=== PATIENT | male | born 1985 | race Caucasian/White ===

== ENCOUNTER 2023-05-23 18:30 | Observation (INO) | payer BC, SELFPAY ==
[2023-05-23] VITALS (32 sets, daily range): BP systolic 79–126; BP diastolic 62–86; PULSE 90–120; RESP 16–24; TEMP 36.5–36.8; O2SAT 92–100; BMI 36.6; BMI 36.7
--- NOTE | 2023-05-23 18:41 | ECG_ITS ---
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
--- NOTE | 2023-05-23 18:41 | ED.ALLEREA1 ---
HPI - Allergic Reaction General Chief complaint: Allergic Reaction Stated complaint: Anaphylaxis Time Seen by Provider: 05/23/23 18:37 Source: patient Mode of arrival: ambulance Limitations: no limitations History of Present Illness HPI narrative: The patient presenting to us after he was already evaluated in a [place] emergency room where he had a CAT scan of the abdomen with contrast, this was done after the patient was complaining of abdominal pain after having a colonoscopy done on Wednesday. The patient workup was negative and he was discharged home to be Almost within half an hour before arrival with a rash all over his body in addition to redness. The patient mentioned that when he left the emergency room in that hospital he already had a rash but not as severe as now he also had some difficulty breathing when waking up in addition to itching. The patient recalls that he have some red dye rash and he was provided with Benadryl before getting discharged. Related Data Allergies Allergy/AdvReac Type Severity Reaction Status Date / Time fentanyl Allergy Severe Verified 05/23/23 18:41 iv dye Allergy Severe Uncoded 05/23/23 18:41 toradol Allergy Severe Uncoded 05/23/23 18:41 Review of Systems ROS Status of ROS 10 or more systems reviewed and unremarkable except as noted in history and below Exam Narrative Exam Narrative: Nurses notes and vital signs reviewed and patient is not hypoxic. General: Well-appearing and in no apparent distress. Skin: Warm, dry, no pallor noted. No rash. Head: Normocephalic, atraumatic. Neck: Supple, non-tender. Eye: Pupils are equal, round and EOMI. No scleral icterus. Ears, Nose, Mouth, and Throat: TM are clear, no nasal mucosal hypertrophy. Oral mucosa is moist, no posterior oropharynx erythema, uvula is mid-line Cardiovascular: Regular Rate and Rhythm without murmur, gallop or rub. Respiratory: No accessory muscle use or respiratory distress. Lungs are clear to auscultation, no wheezing, rales or rhonchi Chest Wall: no tenderness Back: No midline thoracic or lumbar vertebral tenderness. No CVA tenderness Musculoskeletal: normal ROM, no calf or popliteal tenderness, no lower extremity edema/swelling GI: Abdomen is soft, non-distended. Normal bowel sounds. No masses appreciated. No tenderness to palpation. No rebound, guarding, or rigidity noted. Neurological: A&O x4. No cranial nerve dysfunction observed. No truncal ataxia. Moves all extremities. Sensation intact. Psychiatric: Cooperative and interactive. Normal mood and affect. Skin examination Extensive maculopapular rash all over the body from head to toe Constitutional Vital Signs, click to edit/add: Last Vital Signs Temp 98.1 F 05/23/23 18:32 Pulse 120 H 05/23/23 18:32 Resp 24 05/23/23 18:32 BP 114/69 05/23/23 18:32 Pulse Ox 100 05/23/23 18:32 O2 Del Method Nasal Cannula 05/23/23 18:32 O2 Flow Rate 4 05/23/23 18:32 Course Vital Signs Vital signs: Vital Signs Temperature 98.1 F 05/23/23 18:32 Pulse Rate 120 H 05/23/23 18:32 Respiratory Rate 24 05/23/23 18:32 Blood Pressure 114/69 05/23/23 18:32 Pulse Oximetry 100 05/23/23 18:32 Oxygen Delivery Method Nasal Cannula 05/23/23 18:32 Oxygen Delivery Flow Rate 4 05/23/23 18:32 Temperature 98.1 F 05/23/23 18:32 Pulse Rate 120 H 05/23/23 18:32 Respiratory Rate 24 05/23/23 18:32 Blood Pressure 114/69 05/23/23 18:32 Pulse Oximetry 100 05/23/23 18:32 Oxygen Delivery Method Nasal Cannula 05/23/23 18:32 Oxygen Delivery Flow Rate 4 05/23/23 18:32 MDM - Allergic Reaction MDM Narrative Medical decision making narrative: There was no wheezing there was no tongue swelling and the patient blood pressure was already better after he received epinephrine by the EMS although his blood pressure was 80 systolic upon their arrival. The patient had a also Solu-Medrol 125 mg , in addition to 25 mg of Benadryl I added 25 mg again of Benadryl in addition to Pepcid IV. EKG showing sinus rhythm rhythm with a heart rate of [address] elevation or depression The patient had a CBC and chemistry as well as ordered pending the workup the patient care was transferred to Dr. León Discharge Plan Discharge Patient Disposition: Still a Patient
--- NOTE | 2023-05-23 18:44 | PC.NURSE ---
PT HAS COLONOSCOPY WEDNESDAY. PT STAARTED HAVING SEVERE ABDOMINAL PAIN WITH DIARRHEA AND NAUSEA TODAY AND WENT TO [facility]. PT WAS GIVEN FENTANYL, TORADOL AND HAD CT WITH CONTRAAST. PT HAD SEVERE ALLERGIC REACTION BUT ITS UNKNOWN IF IT WAS FROM MEDICATION OR CONTRAST. PT WAS TREATED AND THEN DISCHARGED. PT STATES STILL HAD RED RASH BUT NOT A SEVERE WHEN HE WAS SENT HOME PT STATES TOOK AT NAP WHEN HE GOT HOME AND WOKE UP WITH SEVERE NAUSEA, SOB, AND RED RASH WITH SWELLING HEAD TO TOE. PT CALLED EMS. EMS GAVE 125MG SOLUMEDROL, 25 MG BENADRYL, 1 L NS, AND .3 MG EPI.
[2023-05-23] MEDS: 0.9 % SODIUM CHLORIDE 1,000 ML 1000 ML IV ×2 (18:57→19:30)
[2023-05-23] MEDS: FAMOTIDINE/PF 20 MG/2 ML VIAL IV ×2 (18:58→19:55)
[2023-05-23] MEDS: DIPHENHYDRAMINE HCL 50 MG/ML (1ML) VIAL 25 MG IV (18:58)
[2023-05-23 19:07] LABS: Basophils Absolute Auto 0.1 10^3/uL (0.0-0.1); Basophils Percent Auto 0.2 % (0.2-2.0); Eosinophils Absolute Auto 0.2 10^3/uL (0.0-0.7); Eosinophils Percent Auto 0.9 % (0.9-7.0); Hematocrit 48.2 % (42.0-54.0); Hemoglobin 16.2 g/dL (14.0-18.0); Immature Granulocytes Abs Auto 0.09 10^3/uL (0.00-0.03); Immature Granulocytes Pct Auto 0.4 % (0.0-0.5); Lymphocytes Absolute Auto 1.7 10^3/uL (1.2-3.8); Lymphocytes Percent Auto 7.8 % (20.5-60.0); Mean Corpuscular HGB Conc 33.6 g/dL (29.9-35.2); Mean Corpuscular Hemoglobin 30.3 pg (25.9-34.0); Mean Corpuscular Volume 90.3 fL (80.0-94.0); Mean Platelet Volume 9.4 fL (9.5-13.5); Monocytes Percent Auto 4.6 % (1.7-12.0); Neutrophils Absolute Auto 19.3 10^3/uL (1.4-6.5); Neutrophils Percent Auto 86.1 % (43.0-75.0); Platelet Count 427 10^3/uL (150-450); Red Blood Count 5.34 10^6/uL (4.70-6.10); Red Cell Distribution Width 12.4 % (11.0-15.0); White Blood Count 22.4 10^3/uL (4.0-11.0)
--- NOTE | 2023-05-23 19:20 | ED_ITS ---
HPI - Allergic Reaction General Chief complaint: Allergic Reaction Stated complaint: Anaphylaxis Time Seen by Provider: 05/23/23 18:37 Source: patient Mode of arrival: ambulance Limitations: no limitations History of Present Illness HPI narrative: This 37-year-old male was signed out to me at shift change. He presents to emergency department by EMS for an ALLERGIC reaction. The patient had a colonoscopy and endoscopy at [facility]. He states he was having ongoing abdominal cramping and pain earlier today and went to the emergency department. A contrast-enhanced CT scan was performed and he was given fentanyl and Zofran for his pain. According to the patient's he started breaking out in a rash with hives on his face and neck prior to going to CAT scan. The CAT scan was allegedly normal and he was discharged home. He took a nap and when he awakened he was covered with a red rash and EMS was called. He was given solumedrol, epinephrine and fluids as well as Benadryl by EMS. He was given additional Benadryl and Pepcid when he arrived in this emergency department. Patient was seen and evaluated. He is still rash covered but breathing normally with no stridor. He denies any abdominal cramps or pain at this time. Related Data Allergies Allergy/AdvReac Type Severity Reaction Status Date / Time fentanyl Allergy Severe Verified 05/23/23 18:41 iv dye Allergy Severe Uncoded 05/23/23 18:41 toradol Allergy Severe Uncoded 05/23/23 18:41 Review of Systems ROS Status of ROS 10 or more systems reviewed and unremark able except as noted in history and below Exam Narrative Exam Narrative: Vital signs are reviewed, patient is tachycardic with a pulse of 119, he is not hypoxic with pulse ox of 100 percent on room, blood pressure is 119/81 at the time of this dictation General: , Nontoxic male, he is covered with an erythematous rash, speech is clear, there is no trismus or drooling noted Skin: Diffuse erythematous rash Head: Normocephalic, atraumatic Eye: Normal conjunctiva, no drainage, EOMI. PERRL, conjunctiva appear normal Ears, Nose, Mouth, and Throat: oral mucosa is moist.There is no swelling of the tongue, uvula or pharyngeal soft tissues, there is no pooling of secretions. Speech is clear Neck: Supple, no stridor appreciated Cardiovascular: Regular Rate and Rhythm, Tachycardic at 119 Respiratory: Patient is in no distress, no accessory muscle use, lungs are clear to auscultation, no wheezing, rales or rhonchi Back: non-tender, no CVA tenderness bilaterally to percussion. GI: Normal bowel sounds, no tenderness to palpation, no masses appreciated. No rebound, guarding, or rigidity noted. Musculoskeletal: Diffuse erythematous rash on upper and lower extremities bilaterally Neurological: A&O x4, normal speech Psychiatric: Cooperative Constitutional Vital Signs, click to edit/add: Last Vital Signs Temp 98.1 F 05/23/23 18:32 Pulse 111 H 05/23/23 18:50 Resp 24 05/23/23 18:32 BP 114/78 05/23/23 18:46 Pulse Ox 99 05/23/23 18:50 O2 Del Method Nasal Cannula 05/23/23 18:32 O2 Flow Rate 4 05/23/23 18:32 Course Course Hospital Course: This patient was continuously monitored on the environmental monitoring technician and evaluated. Approximately 1-1/2 hours after arrival he started to have recurrence of some upper or lower lip swelling. He was evaluated by myself. There is no respiratory distress or stridor noted. He was remedicated with 60 mg of IV Solu-Medrol and 0.3 mg of subcutaneous epinephrine. On reevaluation his symptoms appear to be improving. Labs are reviewed. His white count is elevated at 22.4 which is likely an acute phase reactant. I did review his labs from earlier today at [facility] and his white count was 15 at that time. Vital Signs Vital signs: Vital Signs Temperature 98.1 F 05/23/23 18:32 Pulse Rate 120 H 05/23/23 18:32 Respiratory Rate 24 05/23/23 18:32 Blood Pressure 114/69 05/23/23 18:32 Pulse Oximetry 100 05/23/23 18:32 Oxygen Delivery Method Nasal Cannula 05/23/23 18:32 Oxygen Delivery Flow Rate 4 05/23/23 18:32 Temperature 98.1 F 05/23/23 18:32 Pulse Rate 111 H 05/23/23 18:50 Respiratory Rate 24 05/23/23 18:32 Blood Pressure 114/78 05/23/23 18:46 Pulse Oximetry 99 05/23/23 18:50 Oxygen Delivery Method Nasal Cannula 05/23/23 18:32 Oxygen Delivery Flow Rate 4 05/23/23 18:32 MDM - Allergic Reaction MDM Narrative Medical decision making narrative: 37-year-old male sent out to me at shift change presented to the emergency department by EMS for an ALLERGIC reaction. The patient had fentanyl and Zofran earlier today while at [place] emergency department while being worked up for abdominal pain. He started having hives while in the emergency department and his female guest services coordinator thinks that he started having the hives prior to CT scan. He does not have a known contrast reaction. When EMS was called he was given subcutaneous epinephrine and Solu-Medrol as well as Benadryl. He was given additional Benadryl and Pepcid in this emergency department. He complained of some dyspepsia and was given a gastrointestinal cocktail and additional Pepcid. He has received IV fluids. EKG was reviewed by myself and does not show any acute findings. He has no elevated white count at 22 which is likely an acute phase reactant to the ALLERGIC reaction. Electrolytes are normal although he does have a mildly elevated creatinine of 1.62. While in the emergency department he had some recurrence of lip swelling and was remedicated with an additional 60 mg of IV Solu-Medrol and subcutaneous epinephrine. The patient will require monitoring overnight in the ICU. The case was discussed with the hospitalist and he is accepted for admission to the ICU. Differential Diagnosis Differential diagnosis: Likely anaphylaxis, allergic reaction and adverse reaction to drug Medical Records Attestation: I reviewed the patient's medical records. Medical records narrative: Patient's Emergency Department chart from [facility] was reviewed by myself. He had normal labs at that time and CT scan of abdomen and pelvis did not show any acute findings. Lab Data Attestation: I reviewed the patient's lab results. Labs: Lab Results 05/23/23 Range/Units 18:58 WBC 22.4 H (4.0-11.0) 10^3/uL RBC 5.34 (4.70-6.10) 10^6/uL Hgb 16.2 (14.0-18.0) g/dL Hct 48.2 (42.0-54.0) % MCV 90.3 (80.0-94.0) fL MCH 30.3 (25.9-34.0) pg MCHC 33.6 (29.9-35.2) g/dL RDW 12.4 (11.0-15.0) % Plt Count 427 (150-450) 10^3/uL MPV 9.4 L (9.5-13.5) fL Neut % (Auto) 86.1 H (43.0-75.0) % Lymph % (Auto) 7.8 L (20.5-60.0) % [place] % (Auto) 4.6 (1.7-12.0) % Eos % (Auto) 0.9 (0.9-7.0) % Baso % (Auto) 0.2 (0.2-2.0) % Neut # (Auto) 19.3 H (1.4-6.5) 10^3/uL Lymph # (Auto) 1.7 (1.2-3.8) 10^3/uL [place] # (Auto) 1.0 H (0.3-0.8) 10^3/uL Eos # (Auto) 0.2 (0.0-0.7) 10^3/uL Baso # (Auto) 0.1 (0.0-0.1) 10^3/uL Abs Immat Gran (auto) 0.09 H (0.00-0.03) 10^3/uL Imm/Tot Granulo (auto) 0.4 (0.0-0.5) % ECG Data Attestation: I personally reviewed and interpreted this ECG as follows: (Sinus tachycardia at 111 beats for minute, normal axis, normal intervals, no acute ST segment elevation or T-wave inversion) Critical Care Time Critical Care Time Critical Care Time: Yes Total Critical Care Time: 45 Attestation: . Discharge Plan Discharge Chief Complaint: Allergic Reaction Clinical Impression: Anaphylaxis Patient Disposition: Admitted as Observation Time of Disposition Decision: 20:40
[2023-05-23 19:25] LABS: Alanine Aminotransferase 44 U/L (16-63); Albumin Level 3.1 g/dL (3.4-5.0); Alkaline Phosphatase 94 U/L (46-116); Anion Gap 17.4; Aspartate Amino Transferase 20 U/L (15-37); BUN Creatinine Ratio 8.6; Bilirubin Total 0.8 mg/dL (0.2-1.0); Calcium 7.9 mg/dL (8.5-10.1); Carbon Dioxide 22.1 mmol/L (21.0-32.0); Chloride 104 mmol/L (98-107); Estimated GFR (African America 59 (>=60); Estimated GFR (Non-African Ame 49 (>=60); Globulin 3.2 g/dL; Glucose 210 mg/dL (74-106); Potassium 4.5 mmol/L (3.5-5.1); Sodium 139 mmol/L (136-145); Total Protein 6.3 g/dL (6.4-8.2)
[2023-05-23] MEDS: lidocaine HCL 15 ML, MAG HYDROX/ALUMINUM HYD/SIMETH 30 ML, HYOSCYAMINE SULFATE 0.25 MG PO (19:55)
--- NOTE | 2023-05-23 20:09 | PC.NURSE ---
Pt called this nurse into the room for feeling that his face is swelling again Pt states he feels that his face is swollen-when pt sticks out his tongue this nurse does not notice any swelling, however his bottom lip does appear to be puffy His states that she thinks his face is more swollen too This was relayed to Dr. León The thick redness that was present throughout his body has lessened but he is now covered in rash from head to toe Blanching present to trunk
[2023-05-23] MEDS: METHYLPREDNISOLONE SOD SUCC PF 125 MG/2 ML VIAL 60 MG IVP (20:20)
[2023-05-23] MEDS: EPINEPHRINE HCL PF 1 MG/ML AMPULE 0.299999999999999989 MG SUBQ (20:20)
[2023-05-23] MEDS: EPINEPHRINE HCL PF 1 MG/ML AMPULE 0.299999999999999989 MG IM (21:54)
[2023-05-24] VITALS (41 sets, daily range): BP systolic 105–130; BP diastolic 65–73; PULSE 84–127; RESP 11–36; TEMP 36.8–37.1; O2SAT 93–96
[2023-05-24] MEDS: DIPHENHYDRAMINE HCL 50 MG/ML (1ML) VIAL 25 MG IV (01:01)
[2023-05-24 05:19] LABS: Basophils Percent Auto 0.3 % (0.2-2.0); Eosinophils Percent Auto 0.3 % (0.9-7.0); Hematocrit 45.1 % (42.0-54.0); Immature Granulocytes Abs Auto 0.06 10^3/uL (0.00-0.03); Immature Granulocytes Pct Auto 0.4 % (0.0-0.5); Lymphocytes Absolute Auto 0.7 10^3/uL (1.2-3.8); Mean Corpuscular HGB Conc 33.3 g/dL (29.9-35.2); Mean Corpuscular Hemoglobin 29.7 pg (25.9-34.0); Mean Corpuscular Volume 89.3 fL (80.0-94.0); Mean Platelet Volume 9.4 fL (9.5-13.5); Monocytes Absolute Auto 0.3 10^3/uL (0.3-0.8); Monocytes Percent Auto 2.1 % (1.7-12.0); Neutrophils Absolute Auto 13.5 10^3/uL (1.4-6.5); Neutrophils Percent Auto 91.9 % (43.0-75.0); Platelet Count 335 10^3/uL (150-450); Red Blood Count 5.05 10^6/uL (4.70-6.10); Red Cell Distribution Width 12.6 % (11.0-15.0); White Blood Count 14.7 10^3/uL (4.0-11.0)
[2023-05-24 05:52] LABS: Alanine Aminotransferase 42 U/L (16-63); Albumin Globulin Ratio 0.9; Alkaline Phosphatase 74 U/L (46-116); Anion Gap 15.5; Aspartate Amino Transferase 20 U/L (15-37); BUN Creatinine Ratio 12.7; Bilirubin Total 0.5 mg/dL (0.2-1.0); Calcium 8.2 mg/dL (8.5-10.1); Carbon Dioxide 22.9 mmol/L (21.0-32.0); Chloride 106 mmol/L (98-107); Estimated GFR (African America >60 (>=60); Estimated GFR (Non-African Ame >60 (>=60); Globulin 3.3 g/dL; Glucose 156 mg/dL (74-106); Potassium 5.4 mmol/L (3.5-5.1); Sodium 139 mmol/L (136-145); Total Protein 6.3 g/dL (6.4-8.2)
--- NOTE | 2023-05-24 08:21 | PM.HP ---
H&P: HPI History of Present Illness Chief complaint: Anaphylaxis, Allergic Reaction Narrative: patient is a 37-year-old male who recently has been undergoing workup for possible lupus versus Crohn's disease. He had an EGD and colonoscopy approximately 4-5 days ago and started having significant abdominal pain forty-eight hours after he presented to the Emergency Room in [place]. In [place] they gave him some pain medication, he also received a CT with contrast and some Zofran. he reports that he started having hives on his skin, itching, redness to his face and lip swelling shortly after he was in the Emergency Room. Because he was having some shortness of breath after the lip swelling EMS was called and he was given epinephrine, Benadryl. The emergency room he was also given Benadryl with some Solu-Medrol and epinephrine. He was admitted to the hospitalist service for observation of his anaphylactic reaction. Overnight he reports he feels much better since admission. Still with symptoms slight swelling of the upper lip, no tongue swelling or problems breathing. He also notes that his itching has resolved and flushing has also resolved. ALLERGIES IV contrast dye, fentanyl were added to his ALLERGY list. He denies any other issues or complaints at this time. Review of Systems ROS Narrative ROS: a complete review of systems were reviewed with patient and are positive as below or listed in History of Chief Complaint. General: no fever, chills, night sweats Head: no headache, trauma, visual changes, nausea or vomiting Skin: rashes, itching Eyes: no blurriness of vision Ears: no reported hearing loss, vertigo, earache, or tinnitus Throat: no sore throat, hoarseness, swelling of neck, or tongue, but lip swelling Heart: no chest pain Lungs: shortness of breath no cough GI: no diarrhea or vomiting/nausea Urinary: no urinary urgency, frequency or pain Neuro: no numbness or tingling HEM: no bleeding issues or bruising ENDO: no thyroid problems Psych: no anxiety or depression [facility] Medical History (Updated 05/24/23 @ 14:15 by Merry Gaviria DO) Infection of left knee ?M00.9 - Pyogenic arthritis, unspecified (ICD-10) Blurred vision ?H53.8 - Other visual disturbances (ICD-10) Shaky ?R25.1 - Tremor, unspecified (ICD-10) Weakness ?R53.1 - Weakness (ICD-10) Fatigue ?R53.83 - Other fatigue (ICD-10) Surgical History H/O left knee surgery ?Z98.890 - Other specified postprocedural states (ICD-10) Family History Father Acute Crohn's disease Pancreatitis Mother Common bile duct (CBD) obstruction Social History (Updated 05/23/23 @ 22:49 by Trenton Ozuna) Within the past year, how often did you have a drink containing alcohol: monthly or less Within the past year, how often did you have six or more drinks on one occasion: never Do you use any of these nicotine containing products: vaping products and smokeless tobacco Nicotine containing products detail: States he Vapes daily and only occasionally uses dipping tobacco Second hand tobacco smoke exposure: No Non-prescribed substance use: cannabis (any form) Non-prescribed substance use details: states he smokes 2 Marijuana joints daily on average Known occupational exposures/hazards: No Highest level of school completed/degree received: high school graduate Are you now , , , , never or living with a partner: In a typical week, how many times do you talk on the telephone with family, friends, or neighbors: 3 or more times per week How often do you get together with friends or relatives: 3 or more times per week Little interest or pleasure in doing things: not at all Feeling down, depressed, or hopeless: not at all Feel stressed/tense/nervous/anxious/difficulty sleeping: not at all Do you think of yourself as: straight/heterosexual Gender Identity: male Meds Home Medications and Allergies Home Medications Medication Instructions Recorded Confirmed Type cetirizine 10 mg tablet 10 mg PO QD 7 days #7 tabs 05/24/23 Rx famotidine 20 mg tablet 40 mg (2 x 20 mg) PO QD 7 days #14 05/24/23 Rx tabs Allergies Allergy/AdvReac Type Severity Reaction Status Date / Time fentanyl Allergy Severe Verified 05/23/23 18:41 iv dye Allergy Severe Uncoded 05/23/23 18:41 toradol Allergy Severe Uncoded 05/23/23 18:41 Exam Narrative Exam Narrative: General: Patient is alert, and oriented to person, place and time with normal affect, proper hygiene Skin: erythema/flushing over the face and upper chest Head: atraumatic, acephalic Eyes: PERRLA, no nystagmus present, conjunctiva clear, no scleral icterus Ears: normal Tympanic Membrane, normal gross auditory acuity Nose: symmetric, no discharge, no maxillary or frontal sinus tenderness Mouth/Throat: no erythema, exudate, or tonsillar enlargement, normal dentition, slight swelling to the upper lip Neck: no masses palpated, normal thyroid, no JVD or audible carotid bruits Heart: Normal rate and rhythm, no murmurs/rubs/gallops Lungs: no audible wheezes, crackles and normal breath sounds all lung banks Abdomen: Normal audible bowel sounds, no distension, No palpable masses, no organomegaly, no rebound/guarding/ or rigidity Neuro: CN II-X grossly intact, Constitutional Vital Signs, click to edit/add: Last Vital Signs Temp 98.7 F 05/24/23 08:00 Pulse 100 H 05/24/23 08:00 Resp 16 05/24/23 08:00 BP 105/67 05/24/23 04:00 Pulse Ox 95 05/24/23 04:00 O2 Del Method Room Air 05/24/23 04:00 O2 Flow Rate 4 05/23/23 18:32 Results Labs Labs: Short CBC 05/23/23 05/24/23 Range/Units 18:58 05:04 WBC 22.4 H 14.7 H (4.0-11.0) 10^3/uL Hgb 16.2 15.0 (14.0-18.0) g/dL Hct 48.2 45.1 (42.0-54.0) % Plt Count 427 335 (150-450) 10^3/uL BMP 05/23/23 05/24/23 18:58 05:04 Sodium 139 139 Potassium 4.5 5.4 H Chloride 104 106 Carbon Dioxide 22.1 22.9 BUN 14.0 15.0 Creatinine 1.62 H 1.18 Glucose 210 H 156 H Calcium 7.9 L 8.2 L Liver Function 05/23/23 05/24/23 Range/Units 18:58 05:04 Total Bilirubin 0.8 0.5 (0.2-1.0) mg/dL AST 20 20 (15-37) U/L ALT 44 42 (16-63) U/L Alkaline Phosphatase 94 74 (46-116) U/L Albumin 3.1 L 3.0 L (3.4-5.0) g/dL Assessment and Plan Assessment and Plan (1) Anaphylaxis: Assessment and Plan: patient was given Benadryl, epinephrine, Solu-Medrol. Will continue with another dose of Solu-Medrol 125 mg IV ?1 and will be discharged home today on Zyrtec 10 mg once a day and Pepcid 40 mg once a day for 7 days. Qualifiers: Encounter type: initial encounter Qualified Code(s): T78.2XXA - Anaphylactic shock, unspecified, initial encounter Plan full code
[2023-05-24] MEDS: FAMOTIDINE 20 MG TABLET 40 MG PO (08:38)
[2023-05-24] MEDS: CETIRIZINE HCL 10 MG TABLET PO (08:38)
[2023-05-24] MEDS: METHYLPREDNISOLONE SOD SUCC PF 125 MG/2 ML VIAL IVP (09:53)
--- NOTE | 2023-05-24 11:38 | CM.NOTE ---
Rounds made with atul Mike for pt to discharge to home this afternoon. No discharge needs identified.
--- NOTE | 2023-05-24 14:18 | PM.DS1 ---
DS: Providers Provider Date of admission: 05/23/23 22:00 Primary care physician: LEELA LAMBERT APRN-DENISE Admitting clinician: Merry Gaviria Discharging clinician: Merry Gaviria DS: Diagnosis Discharge Diagnosis (1) Anaphylaxis: Qualifiers: Encounter type: initial encounter Qualified Code(s): T78.2XXA - Anaphylactic shock, unspecified, initial encounter DS: Summary Hospital Course Hospital Course: patient is a 37-year-old male who recently has been undergoing workup for possible lupus versus Crohn's disease. He had an EGD and colonoscopy approximately 4-5 days ago and started having significant abdominal pain forty-eight hours after he presented to the Emergency Room in [place]. In [place] they gave him some pain medication, he also received a CT with contrast and some Zofran. he reports that he started having hives on his skin, itching, redness to his face and lip swelling shortly after he was in the Emergency Room. Because he was having some shortness of breath after the lip swelling EMS was called and he was given epinephrine, Benadryl. The emergency room he was also given Benadryl with some Solu-Medrol and epinephrine. He was admitted to the hospitalist service for observation of his anaphylactic reaction. Overnight he reports he feels much better since admission. Still with symptoms slight swelling of the upper lip, no tongue swelling or problems breathing. He also notes that his itching has resolved and flushing has also resolved. ALLERGIES IV contrast dye, fentanyl were added to his ALLERGY list. He denies any other issues or complaints at this time. Given dose of Solu-Medrol 125 mg IV ?1 this morning and will be discharged home today on Zyrtec 10 mg once a day and Pepcid 40 mg once a day for 7 days. he is to return to the hospital with any worsening symptoms. Time Spent with Patient Time attestation: Total time spent providing and/or coordinating discharge services: Time spent: less than 30 minutes Exam Narrative Exam Narrative: no changes to physical exam from H and P dated 05/24/23 Constitutional Vital Signs, click to edit/add: Last Vital Signs Temp 98.3 F 05/24/23 12:00 Pulse 109 H 05/24/23 12:30 Resp 18 05/24/23 12:30 BP 130/73 05/24/23 12:29 Pulse Ox 96 05/24/23 12:29 O2 Del Method Room Air 05/24/23 04:00 O2 Flow Rate 4 05/23/23 18:32 DS: Data Data Completed and Pending Labs on day of discharge: Labs from last 24 hours 05/24/23 05/23/23 05:04 18:58 WBC 14.7 H 22.4 H RBC 5.05 5.34 Hgb 15.0 16.2 Hct 45.1 48.2 MCV 89.3 90.3 MCH 29.7 30.3 MCHC 33.3 33.6 RDW 12.6 12.4 Plt Count 335 427 MPV 9.4 L 9.4 L Neut % (Auto) 91.9 H 86.1 H Lymph % (Auto) 5.0 L 7.8 L [place] % (Auto) 2.1 4.6 Eos % (Auto) 0.3 L 0.9 Baso % (Auto) 0.3 0.2 Neut # (Auto) 13.5 H 19.3 H Lymph # (Auto) 0.7 L 1.7 [place] # (Auto) 0.3 1.0 H Eos # (Auto) 0.0 0.2 Baso # (Auto) 0.0 0.1 Abs Immat Gran (auto) 0.06 H 0.09 H Imm/Tot Granulo (auto) 0.4 0.4 Sodium 139 139 Potassium 5.4 H 4.5 Chloride 106 104 Carbon Dioxide 22.9 22.1 Anion Gap 15.5 17.4 BUN 15.0 14.0 Creatinine 1.18 1.62 H Est GFR ( Amer) >60 59 L Est GFR (Non-Af Amer) >60 49 L BUN/Creatinine Ratio 12.7 8.6 Glucose 156 H 210 H Calcium 8.2 L 7.9 L Total Bilirubin 0.5 0.8 AST 20 20 ALT 42 44 Alkaline Phosphatase 74 94 Troponin I High Sens 17.0 Total Protein 6.3 L 6.3 L Albumin 3.0 L 3.1 L Globulin 3.3 3.2 Albumin/Globulin Ratio 0.9 1.0 Discharge Plan Discharge Disposition: Home, Self-Care Discharge Medications: New cetirizine 10 mg Tablet 10 mg PO QD 7 Days Qty: 7 0RF famotidine 20 mg Tablet 40 mg PO QD 7 Days Qty: 14 0RF Activity: resume usual activities as tolerated Diet: advance to your usual diet Patient Instructions: General Allergic Reaction (ED) Forms: Portal Instructions Follow Up Appointments: Follow up with Dr. Lambert in [place] within a week. [phone]
--- NOTE | 2023-05-25 15:11 | CM.DCFOLLOWU ---
Person spoke with: De How are you feeling? Better but still tired How is your pain? No pain Did you understand your discharge instructions? Yes Do you have any questions about your discharge instructions? No Were you given any prescriptions at discharge? Yes Were you able to get your prescriptions filled? Yes Do you understand how to take your medications as ordered? Yes Do you have any questions about your follow up appointment and do you plan to keep your follow up appointment? I have appointment of Wednesday with my primary care doctor Is there anything else that you would like to discuss? No Questions/Comments/Concerns/Other:
== END 2023-05-24 14:20 | disposition home or self-care (01) ==
LOC: ER 20:51 → ICU 22:03
PROVIDERS: Emergency Medicine; Registered Nurse; Admitting Provider Family Medicine; Emergency Provider Emergency Medicine; PCP Nurse Practitioner Primary Care; Visit Provider Family Medicine
DX: T88.6XXA Anaphylactic reaction due to adverse effect of correct drug or medicament properly administered, initial encounter (principal); T50.8X5A Adverse effect of diagnostic agents, initial encounter; T40.415A Adverse effect of fentanyl or fentanyl analogs, initial encounter
CPT/HCPCS: 36415; 80053; 84484; 85025; 93005; 96372; 96374; 96375; 96376; 99285; G0378; J2930

== ENCOUNTER 2023-12-23 18:37 | Outpatient (OUT) | payer BC, SELFPAY ==
--- NOTE | 2023-12-23 18:40 | US_ITS ---
The [address] [address] Patient Name: CARLTON PUENTES MRN: [id number] date: 1985 Sex: M Assigned Patient Location: [place] Current Patient Location: [place] Accession/Order Number: [id number] Exam Date: 12/23/2023 19:00 Report Date: 12/25/2023 05:08 At the request of: ALMA ROSA OLMSTEAD Procedure: US thyroid EXAMINATION: US thyroid HISTORY: VOICE HOARSENESS R49.0 COMPARISON: No relevant comparison available. FINDINGS: RIGHT LOBE: Enlarged, but fairly homogeneous echotexture and no increased vascularity. Contains an 8 mm TR 3 nodule within mid body. Lobe size: 6.0 x 1.7 x 1.8 cm LEFT LOBE: Normal size and echotexture. Lobe size: 4.8 x 1.2 x 1.6 cm ISTHMUS: Minimally thickened. Thickness: 4 mm OTHER: Within the left neck corresponding to area of swelling are several slightly edematous appearing lymph nodes, largest is 2.8 x 1.0 x 1.6 cm US/US thyroid IMPRESSION: 1. Slightly prominent right thyroid lobe, but not overtly suspicious. Right lobe contains an 8 mm TR 3 nodule. No additional follow-up recommended at this time. 2. Mild lymphadenopathy within left neck corresponding to patient's area of swelling. Consider follow-up ultrasound evaluation in one month to document stability versus progression. TR3 (mildly suspicious): > 1.5 cm, follow-up ultrasound in 1, 3, and 5 years. > 2.5 cm, fine needle aspiration. Electronically authenticated by: LOWELL BLACKBURN Date: 12/25/2023 05:08
--- OUTSIDE RECORDS SUMMARY | 2023-12-23 18:40 | XMS_ITS | CCD ---
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, Jorge A Primary Care Provider AMBREEN AVELAR Referring Unavailable SHAMMO, JORGE A Primary Care Unavailable SHAMMO, JORGE A Primary Care Unavailable MILADY ZIMMER Attending Unavailable JANNET ARECHIGA Attending Unavailable JANNET ARECHIGA Referring Unavailable SHAMMO, JORGE A Primary Care Unavailable RONA EVANS Attending Unavailable ALEX PYLE Referring Unavailable SHAMMO, JORGE A Primary Care Unavailable RONA EVANS Attending Unavailable ALEX PYLE Referring Unavailable ALEX PYLE Primary Care Unavailable SHAMMO, JORGE A Primary Care Unavailable LAINA CARMONA Attending Unavailable SHAMMO, JORGE A Referring Unavailable SHAMMO, JORGE A Primary Care Unavailable SHAMMO, JORGE A Referring Unavailable SHAMMO, JORGE A Primary Care Unavailable SHAMMO, JORGE A Referring Unavailable SHAMMO, JORGE A Primary Care Unavailable ALSHOHA, MOHAMMAD Admitting Unavailable ALSHOHA, MOHAMMAD Attending Unavailable ALSHOHA, MOHAMMAD Referring Unavailable SHAMMO, JORGE A Primary Care Unavailable ALSHOHA, MOHAMMAD Attending Unavailable ALSHOHA, MOHAMMAD Referring Unavailable SHAMMO, JORGE A Primary Care Unavailable JS STRAUSS JR Attending Unavailabl e SHAMMO, JORGE A Primary Care Unavailable ALSHOHA, MOHAMMAD Attending Unavailable ALSHOHA, CHAVEZAMMAD Referring Unavailable SHAMMO, JORGE A Primary Care Unavailable SHAMMO, JORGE A Primary Care Unavailable AMBREEN AVELAR Attending Unavailable SHAMMO, JORGE A Referring Unavailable SHAMMO, JORGE A Primary Care Unavailable AMBREEN AVELAR Attending Unavailable ALEX PYLE Referring Unavailable SHAMMO, JORGE A Primary Care Unavailable SHAMIKA RICKETTS Attending Unavailable RAJIV ESPARZA Referring Unavailable Allergies Allergy Classification Reported Allergen(s) Allergy Type Date of Onset Reaction(s) Facility (1 source) Contrast media; Translations: [DYE] Propensity to adverse reactions to drug (disorder) [facility] Rep[facility] Medications Current Medications Medication Drug Class(es) Dates Sig (Normalized) Sig (Original) [id number] actuat albuterol 0.09 mg/actuat metered dose inhaler (8 sources) beta2-Adrenergic Agonist Start: 05-17-2019 take 2 puff(s) by inhalation every four hours as needed for wheezing albuterol (PROVENTIL HFA;VENTOLIN HFA) 90 mcg/actuation inhaler Indications: Bacterial URI Inhale 2 puffs every 4 (four) hours as needed for wheezing or shortness of breath. 1 Inhaler 0 05/17/2019 Active dicyclomine hydrochloride 20 mg oral tablet (2 sources) Anticholinergic Start: 05-23-2023 take 1 tablet by mouth twice daily as needed dicyclomine (BENTYL) 20 mg tablet Take 1 tablet (20 mg total) by mouth 2 (two) times a day as needed (abdominal cramping). 20 tablet 0 05/23/2023 Active doxycycline hyclate 100 mg oral tablet (8 sources) Tetracycline-class Drug Start: 09-01-2018 take 1 tablet by mouth twice daily doxycycline (VIBRA-TABS) 100 mg tablet Indications: Abscess of buttock, right Take 1 tablet (100 mg total) by mouth 2 (two) times a day. 20 tablet 0 09/01/2018 Active ergocalciferol 1.25 mg oral capsule (7 sources) Provitamin D2 Compound Start: 05-04-2023 ergocalciferol (VITAMIN D2) 1,250 mcg (50,000 unit) capsule Indications: Vitamin D deficiency Capsule weekly for 8 weeks then once monthly 12 capsule 0 05/04/2023 Active fexofenadine hydrochloride 180 mg oral tablet (3 sources) Histamine-1 Receptor Antagonist Start: 11-13-2022 take 1 tablet by mouth once daily fexofenadine (SEFERINO) 180 mg tablet 1 tablet Swallow whole with water; do not take with fruit juices. Orally Once a day for 90 days 0 11/13/2022 Active hydrocortisone 25 mg/ml topical cream (2 sources) Corticosteroid Start: 05-21-2023 hydrocortisone (ANUSOL-HC) 2.5 % rectal cream Insert 1 Application into the rectum in the morning and 1 Application before bedtime. Use twice daily for hemorrhoids for 2 weeks then as needed. 30 g 1 05/21/2023 Active ketoconazole 20 mg/ml medicated shampoo (11 sources) Azole Antifungal Start: 04-29-2023 ketoconazole (NIZORAL) 2 % shampoo Indications: Seborrheic dermatitis Apply 1 Application topically 2 (two) times a week. Apply to damp skin, lather, leave on 5 minutes, and rinse 120 mL 1 04/29/2023 Active ketoconazole (NI ZORAL) 2 % cream Apply 1 Application topically in the morning. 0 Active meloxicam 15 mg oral tablet (8 sources) Nonsteroidal Anti-inflammatory Drug Start: 04-27-2023 take 1 tablet by mouth at mealtime meloxicam (MOBIC) 15 mg tablet Indications: Chronic fatigue syndrome , Chronic low back pain without sciatica, unspecified back pain laterality Take one tablet by mouth in the morning with food 30 tablet 2 04/27/2023 Active mupirocin 0.02 mg/mg topical ointment (8 sources) RNA Synthetase Inhibitor Antibacterial Start: 09-01-2018 mupirocin (BACTROBAN) 2 % ointment Indications: Abscess of buttock, right Apply 1 application topically 2 (two) times a day. 22 g 0 09/01/2018 Active ondansetron 4 mg disintegrating oral tablet (2 sources) Serotonin-3 Receptor Antagonist Start: 05-23-2023 take 1 tablet by mouth every eight hours as needed for nausea ondansetron ODT (ZOFRAN ODT) 4 mg disintegrating tablet Dissolve 1 tablet (4 mg total) on tongue every 8 (eight) hours as needed for nausea for up to 10 doses. 10 tablet 0 05/23/2023 Active pantoprazole 40 mg delayed release oral tablet (2 sources) Proton Pump Inhibitor Start: 05-21-2023 End: 07-20-2023 take 1 tablet by mouth once daily before breakfast pantoprazole (PROTONIX) 40 mg EC tablet Take 1 tablet (40 mg total) by mouth every morning before breakfast for 60 days. Take 20-30 minutes before breakfast 60 tablet 0 05/21/2023 07/20/2023 Active tiZANidine 2 mg oral tablet (8 sources) Central alpha-2 Adrenergic Agonist Start: 04-27-2023 tiZANidine (ZANAFLEX) 2 mg tablet Indications: Chronic fatigue syndrome , Chronic low back pain without sciatica, unspecified back pain laterality One tab at 8:00 p.m.each night 30 tablet 2 04/27/2023 Active Problems Active Problems Problem Classification Problem Date Documented Da te Episodic/Chronic Abdominal pain (3 sources) Unspecified abdominal pain; Translations: [Abdominal pain] Onset: 05-23-2023 Episodic Gastrointestinal hemorrhage (2 sources) Black feces; Translations: [Melena] Onset: 05-18-2023 05-18-2023 Episodic Immunizations and screening for infectious disease (2 sources) Exposure to sexually transmissible disorder; Translations: [Anti-nuclear factor positive] 05-28-2023 Episodic Malaise and fatigue (2 sources) Chronic fatigue syndrome; Translations: [Chronic fatigue syndrome] Onset: 05-14-2023 04-27-2023 Chronic Malaise and fatigue (1 source) Weakness; Translations: [Weakness] Onset: 05-14-2023 Episodic Mycoses (2 sources) Tinea pedis; Translations: [Tinea pedis] Onset: 04-27-2023 04-27-2023 Episodic Nausea and vomiting (1 source) Nausea Onset: 05-23-2023 Episodic Nutritional deficiencies (1 source) Vitamin D deficiency; Translations: [Vitamin D deficiency, unspecified] 05-04-2023 Chronic Other gastrointestinal disorders (1 source) Irritable bowel syndrome with diarrhea; Translations: [Irritable bowel syndrome with diarrhea] Onset: 07-03-2023 Chronic Other gastrointestinal disorders (2 sources) Altered bowel function; Translations: [Other specified symptoms and signs involving the digestive system and abdomen] 05-12-2023 Episodic Other gastrointestinal disorders (3 sources) Other specified symptoms and signs involving the digestive system and abdomen; Translations: [Other specified symptoms and signs involving the digestive system and abdomen] Onset: 05-18-2023 Episodic Other gastrointestinal disorders (1 source) Diarrhea Onset: 05-23-2023 Episodic Other inflammatory condition of skin (1 source) Seborrheic dermatitis; Translations: [Seborrheic dermatitis, unspecified] 04-27-2023 Episodic Other inflammatory condition of skin (1 source) Seborrheic dermatitis, unspecified; Translations: [Seborrheic dermatitis, unspecified] Onset: 04-27-2023 Episodic Other liver diseases (1 source) ALT (SGPT) level raised; Translations: [Elevated ALT measurement] 05-18-2023 Episodic Other male genital disorders (1 source) Male infertility, unspecified; Translations: [Male infertility, unspecified] Onset: 11-27-2022 Episodic Other nervous system disorders (1 source) Other chronic pain; Translations: [Other chronic pain] Onset: 04-27-2023 Chronic Other nervous system disorders (1 source) Disturbance in speech; Translations: [Unspecified speech disturbances] 04-27-2023 Episodic Other nervous system disorders (1 source) Impaired cognition; Translations: [Other symptoms and signs involving cognitive functions and awareness] 04-27-2023 Episodic Other nervous system disorders (1 source) Unspecified speech disturbances; Translations: [Unspecified speech disturbances] Onset: 04-27-2023 Episodic Other nervous system disorders (1 source) Other symptoms and signs involving cognitive functions and awareness; Translations: [Other symptoms and signs involving cognitive functions and awareness] Onset: 04-27-2023 Episodic Other screening for suspected conditions (not mental disorders or infectious disease) (3 sources) Protein level - finding; Translations: [Other specified abnormal findings of blood chemistry] Onset: 05-18-2023 05-12-2023 Episodic Spondylosis; intervertebral disc disorders; other back problems (1 source) Chronic low back pain; Translations: [Chronic low back pain without sciatica, unspecified back pain laterality] 04-27-2023 Episodic Unclassified (1 source) Post-op Issue Onset: 05-23-2023 Unclassified (2 sources) Elevation of levels of liver transaminase levels; Translations: [Elevation of levels of liver transaminase levels] Onset: 05-18-2023 Unclassified (1 source) Weakness - Generalized Onset: 05-14-2023 Unclassified (1 source) Weak for the past couple months, SOB, feels like he is going to pass out Onset: 05-14-2023 Unclassified (1 source) Myalgic encephalomyelitis/c hronic fatigue syndrome; Translations: [Myalgic encephalomyelitis/c hronic fatigue syndrome] Onset: 04-27-2023 Unclassified (1 source) Low back pain, unspecified; Translations: [Low back pain, unspecified] Onset: 04-27-2023 Unclassified (1 source) GI Problem Onset: 05-18-2023 Past or Other Problems Problem Classification Problem Date Documented Da te Episodic/Chronic Lymphadenitis (1 source) Lymphadenitis; Translations: [Lymphadenitis] Onset: 11-08-2017 11-08-2017 Episodic Mood disorders (8 sources) Mood disorders Onset: 04-21-2017 04-21-2017 Results Test Name Value Interpretation Reference Range Facility CBC AND AUTO DIFFon 05-23-19 ABSOLUTE BASOPHIL 0.1 X10E9/L Normal 0.0-0.2 [facility] Comment on above: Performed By: #### 3 040-3, CBCA, , CMP #### [facility] ([id number]) [address] [place] [address] 64840 ABSOLUTE NEUTROPHIL 13.3 X10E9/L High 1.5-6.6 [facility] Comment on above: Performed By: #### 3 040-3, CBCA, , CMP #### [facility] ([id number]) [address] [place] [address] 89169 Basophils/100 WBC (Bld) 0.5 % Normal [facility] Comment on above: Performed By: #### 3 040-3, CBCA, , CMP #### [facility] ([id number]) [address] [place] [address] 33624 Eosinophils (Bld) [#/Vol] 0.2 10*3/uL Normal 0.0-0.4 [facility] Comment on above: Performed By: #### 3 040-3, CBCA, , CMP #### [facility] ([id number]) [address] [place] [address] 62542 Eosinophils/100 WBC (Bld) 1.2 % Normal [facility] Comment on above: Performed By: #### 3 040-3, CBCA, , CMP #### [facility] ([id number]) [address] [place] [address] 90931 Erythrocyte distribution width (RBC) [Ratio] 13.1 % Normal 11.5-15.0 [facility] Comment on above: Performed By: #### 3 040-3, CBCA, , CMP #### [facility] ([id number]) [address] [place] [address] 63127 Hematocrit (Bld) [Volume fraction] 47.1 % Normal 39-49 [facility] Comment on above: Performed By: #### 3 040-3, CBCA, , CMP #### [facility] ([id number]) [address] [place] [address] 46272 Hemoglobin (Bld) [Mass/Vol] 16.6 g/dL Normal 13.0-17.0 [facility] Comment on above: Performed By: #### 3 040-3, CBCA, , CMP #### [facility] ([id number]) [address] [place] [address] 04410 Lymphocytes (Bld) [#/Vol] 1.1 10*3/uL Normal 1.0-3.5 [facility] Comment on above: Performed By: #### 3 040-3, CBCA, , CMP #### [facility] ([id number]) [address] [place] [address] 07585 Lymphocytes/100 WBC (Bld) 7.2 % Normal [facility] Comment on above: Performed By: #### 3 040-3, CBCA, , CMP #### [facility] ([id number]) [address] [place] [address] 91232 MCH (RBC) [Entitic mass] 30.5 pg Normal 27-34 [facility] Comment on above: Performed By: #### 3 040-3, CBCA, , CMP #### [facility] ([id number]) [address] [place] [address] 26013 MCHC (RBC) [Mass/Vol] 35.1 g/dL Normal 32-36 [facility] Comment on above: Performed By: #### 3 040-3, CBCA, , CMP #### [facility] ([id number]) [address] [place] [address] 86835 MCV (RBC) [Entitic vol] 87 fL Normal 80-100 [facility] Comment on above: Performed By: #### 3 040-3, CBCA, , CMP #### [facility] ([id number]) [address] [place] [address] 08770 Monocytes (Bld) [#/Vol] 0.8 10*3/uL Normal 0-0.9 [facility] Comment on above: Performed By: #### 3 040-3, CBCA, , CMP #### [facility] ([id number]) [address] [place] [address] 09243 Monocytes/100 WBC (Bld) 5.2 % Normal [facility] Comment on above: Performed By: #### 3 040-3, CBCA, , CMP #### [facility] ([id number]) [address] [place] [address] 11526 Neutrophils/100 WBC (Bld) 85.9 % Normal [facility] Comment on above: Performed By: #### 3 040-3, CBCA, , CMP #### [facility] ([id number]) [address] [place] [address] 46109 Platelet mean volume (Bld) [Entitic vol] 7.9 fL Normal 7-12 [facility] Comment on above: Performed By: #### 3 040-3, CBCA, , CMP #### [facility] ([id number]) [address] [place] [address] 28901 Platelets (Bld) [#/Vol] 358 10*3/uL Normal 150-450 [facility] Comment on above: Performed By: #### 3 040-3, CBCA, , CMP #### [facility] ([id number]) [address] [place] [address] 54947 RBC COUNT 5.42 X10E12/L Normal 4.10-5.70 [facility] Comment on above: Performed By: #### 3 040-3, CBCA, , CMP #### [facility] ([id number]) [address] [place] [address] 34087 WBC (Bld) [#/Vol] 15.5 10*3/uL High 4.0-11.0 [facility] Comment on above: Performed By: #### 3 040-3, CBCA, , CMP #### [facility] ([id number]) [address] [place] [address] 58781 COMPREHENSIVE METABOLIC PANE Drake 05-23-2023 Albumin [Mass/Vol] 4.4 g/dL Normal 3.2-5.3 [facility] Comment on above: Performed By: #### 3 040-3, CBCA, , CMP #### [facility] ([id number]) [address] [place] [address] 04246 ALP [Catalytic activity/Vol] 100 U/L Normal 39-130 [facility] Comment on above: Performed By: #### 3 040-3, CBCA, , CMP #### [facility] ([id number]) [address] [place] [address] 39763 ALT [Catalytic activity/Vol] 55 U/L High 0-40 [facility] Comment on above: Result Comment: SPEC IMEN HEMOLYZED, RESULTS INCREASED Performed By: #### 3 040-3, CBCA, , CMP #### [facility] ([id number]) [address] [place] [address] 70293 Anion gap [Moles/Vol] 6 mmol/L Normal 5-15 [facility] Comment on above: Performed By: #### 3 040-3, CBCA, , CMP #### [facility] ([id number]) [address] [place] [address] 10057 AST [Catalytic activity/Vol] 39 U/L Normal 0-41 [facility] Comment on above: Result Comment: SPEC IMEN HEMOLYZED, RESULTS INCREASED Performed By: #### 3 040-3, CBCA, , CMP #### [facility] ([id number]) [address] [place] [address] 31864 Bilirubin [Mass/Vol] 1.2 mg/dL Normal 0.3-1.2 [facility] Comment on above: Result Comment: RESU LTS QUESTIONABLE DUE TO HEMOLYSIS Performed By: #### 3 040-3, CBCA, , CMP #### [facility] ([id number]) [address] [place] [address] 84929 Calcium [Mass/Vol] 8.6 mg/dL Normal 8.5-10.5 [facility] Comment on above: Performed By: #### 3 040-3, CBCA, , CMP #### [facility] ([id number]) [address] [place] [address] 95664 Chloride [Moles/Vol] 101 mmol/L Normal 98-109 [facility] Comment on above: Performed By: #### 3 040-3, CBCPhil, , CMP #### [facility] ([id number]) [address] [place] [address] 93501 CO2 [Moles/Vol] 25 mmol/L Normal 22-32 [facility] Comment on above: Performed By: #### 3 040-3, CBCPhil, , CMP #### [facility] ([id number]) [address] [place] [address] 59469 Creatinine [Mass/Vol] 0.99 mg/dL Normal 0.70-1.20 [facility] Comment on above: Result Comment: METH OD TRACEABLE TO IDMS STANDARD Performed By: #### 3 040-3, LIYAH, , CMP #### [facility] ([id number]) [address] [place] [address] 09195 eGFR (CKD-EPI) NON-RACE DEPENDENT >90 Normal >59 [facility] Comment on above: Result Comment: Reported eGFR is based on the CKD-EPI 2020 equation that does not use a race coefficient. Performed By: #### 3 040-3, CBCPhil, , CMP #### [facility] ([id number]) [address] [place] [address] 82466 Glucose [Mass/Vol] 122 mg/dL High 65-99 [facility] Comment on above: Performed By: #### 3 040-3, CBCPhil, , CMP #### [facility] ([id number]) [address] [place] [address] 88280 Potassium [Moles/Vol] 5.0 mmol/L Normal 3.5-5.0 [facility] Comment on above: Result Comment: SPEC IMEN HEMOLYZED, RESULTS INCREASED Performed By: #### 3 040-3, CBCA, 23515-5, CMP #### [facility] ([id number]) [address] [place] [address] 96051 Protein [Mass/Vol] 8.0 g/dL Normal 6.0-8.0 [facility] Comment on above: Performed By: #### 3 040-3, CBCA, 28498-2, CMP #### [facility] ([id number]) [address] [place] [address] 33112 Sodium [Moles/Vol] 132 mmol/L Low 134-146 [facility] Comment on above: Performed By: #### 3 040-3, CBCA, 70995-8, CMP #### [facility] ([id number]) [address] [place] [address] 58798 Urea nitrogen [Mass/Vol] 11 mg/dL Normal 5-23 [facility] Comment on above: Performed By: #### 3 040-3, CBCA, 29541-3, CMP #### [facility] ([id number]) [address] [place] [address] ABDOMEN AND PELVIS W CONT on 05-23-2023 CT ABDOMEN AND PELVIS W CONT CT ABDOMEN AND PELVIS W CONT CLINICAL HISTORY: Acute abdomen pain. CT ABDOMEN AND PELVIS WITH CONTRAST: 05/23/2023 PROCEDURE: Axial images were obtained through the abdomen and pelvis after oral contrast ingestion and 100 mL Omnipaque 300 intravenously. Coronal and sagittal reconstructions were performed. All CT scans at this facility use dose modulation, iterative reconstruction, and/or weight based dosing when appropriate to reduce radiation dose to as low as reasonably achievable. FINDINGS : There is no confluent opacity in the basilar regions. No focal hepatic, splenic, pancreatic, adrenal, or biliary abnormality is present. The kidneys enhance symmetrically with no focal renal lesion. There is no ureteral dilation or irregularity. Urinary bladder appears within normal limits. No dilated bowel loops. There is large amount of material within the stomach. Some distal gastric mucosal undulation may be due to peristalsis. There is no acute osseous abnormality. Vascular structures enhance normally. IMPRESSION: No acute intra-abdominal or pelvic abnormality on CT evaluation with contrast. Mild gastric distention with some irregularity of the distal stomach. Inflammation cannot be excluded. Correlate with exam results. Finalized by De Liang MD on 05/23/2023 2:15 PM Normal [facility] LIPASEon 05-23-2023 Lipase [Catalytic activity/Vol] 27 U/L Normal 17-40 [facility] Comment on above: Performed By: #### 3 040-3, CBCA, , CMP #### [facility] ([id number]) [address] [place] [address] MAGNESIUMon 05-23-2023 Magnesium [Mass/Vol] 2.1 mg/dL Normal 1.8-2.6 [facility] Comment on above: Result Comment: SPEC IMEN HEMOLYZED, RESULTS INCREASED Performed By: #### 3 040-3, CBCA, , CMP #### [facility] ([id number]) [address] [place] [address] 89493 Surgical Pathologyon 024 Surgical Pathology Normal [facility] Comment on above: Result Comment: [facility] [address] [place] [address] Surgical Pathology Consultation Patient Name:DE GARCIA :1985 (Age: 37)Gender:MTaken:4Reported:4Physician(s):Matilda Joshua MD ([phone])Copy To:[facility] CenterAccession #:[id number]. Rec. #:[id number]: #[id number] Final Pathologic Diagnosis 1. Duodenum, biopsy: Unremarkable small bowel mucosa. 2. Stomach, biopsy: Mild chronic antral gastritis with separate unremarkable gastric body mucosa. negative for active colitis, metaplasia and dysplasia. No evidence of H. pylori. 3. Right colon, random biopsies: Focal active colitis with suggestion of chronicity (see comment). 4. Left colon, random biopsies: Minute focus of chronic inflammation and suggestion of granuloma. Comment The combined features in specimens #3 and #4 raise the possibility of an inflammatory bowel disease, particularly Crohn's disease. The differential includes a self-limited infectious colitis. Clinical and endoscopic correlation and close follow-up are indicated. Report Electronically Signed Out 05/24/2023Ko Velasquez MD [place] [address], License number: [id number]. Clinical History Change in bowel movement. 1. R/O celiac 2. R/O H. Pylori 3. R/O microscopic colitis 4. R/O microscopic colitis Gross Description 1. Received in formalin labeledDELORIS, duodenum biopsy are 6 kirk delicate, focally erythematous soft tissue fragments 0.1-0.5 cm in greatest dimension. The specimens are filtered and submitted in a single cassette. (1, ns, [id number], m4) TB 2. Received in formalin labeled, DELORIS, gastric biopsy are 5 kirk delicate, focally erythematous soft tissue fragments, 0.2-0.5 cm in greatest dimension. The specimens are filtered and submitted in a single cassette. (1, ns, [id number], m4) TB 3. Received in formalin labeled, DELORIS, right random colon BX are 8 kirk delicate soft tissue fragments, 0.1-0.4 cm in greatest dimension. The specimens are filtered and submitted in a single cassette. (1, ns, [id number], m4) TB 4. Received in formalin labeled, DELORIS random left colon BX are 7 kirk delicate, focally erythematous soft tissue fragments, 0.2-0.3 cm in greatest dimension. The specimens are filtered and submitted in, single cassette. (1, ns, [id number], m4) TB tgb/05/21/2023EAK Specimen(s) Received 1: Duodenum biopsy 2: Gastric biopsy 3: Right random colon biopsies 4: Random left colon bx's Fee Codes(s): 1; 54795 2; 24323 3; 29226 4; 58437 Calprotectin (Stl) [Mass/Mas s]on 05-20-2023 CALPROTECTIN STOOL See Below Normal [facility] Comment on above: Result Comment: NOTE TEST RESULT FLAG UNIT REF.RANGE ------- CALPROTECTIN, FECAL QUANTITATIVE 11.0 ug/g <50 CALPROTECTIN, FECAL INTERP Normal Normal On August 18, 2022, [facility] JiaThis implemented a new fecal calprotectin method, the [employer]iaison Calprotectin assay. For assistance with interpretation of results in patients undergoing serial monitoring, contact Client Services at [phone] or [phone] to discuss options, preferably within 7 days of issuing this report. Interpretation: <50.0 ug/g: Normal 50.0 ug/g - 120.0 ug/g: Borderline elevated. Re-evaluation in 4-6 weeks is recommended if clinically indicated. >120.0 ug/g: Elevated Test Performed By: [facility] [employer] [address] [place] [address] Engineer Systems: Jose Luis Oseguera III, M.D. [facility] #[id number] Performed By: #### 3 8445-3 #### [facility] ([id number]) [address] [place] [address] XR SPINE LUMBAR 2 OR 3 VWSon 05-19-2023 XR SPINE LUMBAR 2 OR 3 VWS XR SPINE LUMBAR 2 OR 3 VWS EXAM: XR SPINE LUMBAR 2 OR 3 VWS CLINICAL INDICATIONS: Chronic low back pain without sciatica, unspecified back pain laterality IMPRESSION: Vertebral body heights and alignment are maintained. Intervertebral disc space narrowing and mild degenerative endplate changes at L5-S1. Possible mild bony neuroforaminal narrowing at L5-S1. Finalized by Simon Velasquez on 05/19/2023 6:20 PM Normal [facility] ACUTE HEPATITIS PANELon 04-30 ANTI HCV W/PCR REFLX Non-Reactive Normal NRCT [facility] Comment on above: Result Comment: If recent infection suspected, recommend repeat testing (>2 months). Lmbhqg-uq-wijrjv ratio is <0.80. Performed By: #### C BCA, CMP, 215-6, 2639-3 #### [facility] ([id number]) [address], [address] [place] [address] HEPATITIS A IGM Non-Reactive Normal NRCT [facility] Comment on above: Performed By: #### C BCA, CMP, 2156-6, 9-3 #### [facility] ([id number]) [address], [address] [place] [address] HEPATITIS B CORE IGM Negative Normal NEG [facility] Comment on above: Performed By: #### C BCA, CMP, 2156-6, 2639-3 #### [facility] ([id number]) [address], [address] [place] [address] HEPATITIS B SURF AG Negative Normal NEG [facility] Comment on above: Performed By: #### C BCA, CMP, 2156-6, 2639-3 #### [facility] ([id number]) [address], [address] [place] [address] Aldolase [Catalytic activity /Vol]on 05-18-2023 ALDOLASE 5.3 U/L Normal 1.2-7.6 [facility] Comment on above: Result Comment: NOTE REFERENCE INTERVAL: Aldolase Access complete set of age- and/or gender-specific reference intervals for this test in the [employer] Laboratory Test Directory (Keniu). Performed By: [facility] [address] [place] [address] Engineer Systems: Mehran Arroyo MD, PhD CLIA Number: [id number] Performed By: #### C BCA, CMP, 2156-6, 2639-3 #### [facility] ([id number]) [address], [address] [place] [address] Antinuclear AB, HE-p Substra te, (LOUIS by IFA)on 05-18-2023 LOUIS Pattern: Speckled Normal [facility] Comment on above: Result Comment: NOTE Test Performed by: [facility] [address] [place] [address] Pile Driver Operator: Jose Pisano M.D. Ph.D.; CLIA# [id number] Performed By: #### C BCA, CMP, 2156-08, 2638-3 #### [facility] ([id number]) [address], [address] [place] [address] L[place]IS Titer: 1:160 Normal [facility] Comment on above: Performed By: #### Constance CAAL, CMP, 2156-08, 2638-3 #### [facility] ([id number]) [address], [address] [address] Antinuclear Ab, HEp-2 Substrate, S Positive Abnormal <1:80 (Negative) [facility] Comment on above: Result Comment: NOTE ADDITIONAL INFORMATION Method: Immunofluorescence using HEp-2 cellular substrate. Performed By: #### C BCA, CMP, 2156-08, 2638-3 #### [facility] ([id number]) [address], [facility] [address] [place] [address] CK [Catalytic activity/Vol]o n 05-18-2023 CPK 73 U/L Normal 24-195 [facility] Comment on above: Performed By: #### 2 064-4, LIVR, 2156-6, 1987-5, FEPR, 2532-0, 89542-7, THYR, 2276-4, 31534-1, 2131-9, THYRAB, AHP #### [facility] ([id number]) [address], [address] [place] [address] CRP [Mass/Vol]on 05-18-2023 C REACTIVE PROTEIN 1.2 mg/dL High 0.000-0.744 [facility] Comment on above: Performed By: #### C BCA, CMP, 2156-08, 3 #### [facility] ([id number]) [address], [address] [place] [address] Ceruloplasminon 05-18-2023 Ceruloplasmin [Mass/Vol] 31 mg/dL 18 - 58 mg/dL [facility] Ceruloplasmin [Mass/Vol]on 0 05-18-2023 [facility] CERULOPLASMIN 31 mg/dL Normal 18-58 [facility] Comment on above: Performed By: #### 2 064-4, LIVR, 2156-08, 1987-07, FEPR, 2532-0, 38760-4, THYR, 2276-4, 15679-4, 213-9, THYRAB, AHP #### [facility] ([id number]) [address], [address] [place] [address] ESR Photometric method (Bld) [Velocity]on 05-18-2023 ESR, ERYTHROCYTE SEDIMENTATION RATE 29 mm/h High 0-15 [facility] Comment on above: Performed By: #### C AFUA, CMP, 2156-08, 2638- #### [facility] ([id number]) [address], [address] [place] [address] FERRITINon 05-18-2023 Ferritin [Mass/Vol] 410 ng/mL High 24-336 [facility] Comment on above: Performed By: #### C BCA, CMP, 2156-08, 2638-05 #### [facility] ([id number]) [address], [address] [place] [address] HFE gene targeted mutation a nalysis [employer] Nom (Bld/Tiss)on 05-18-2023 HEMOCHROMA HFE GENE See Below Normal [facility] Comment on above: Result Comment: NOTE TEST RESULT FLAG UNIT REF.RANGE ------- Interpretation See below HFE (Hemochromatosis) Laboratory Accession Number: [id number] Result: C282Y: WT H63D: WT S65C: WT Interpretation: No variant detected: The DNA sample is negative for the C282Y, H63D and S65C variants of the HFE gene. Variants at these loci are commonly associated with hereditary hemochromatosis (HH). Approximately 13% of clinically affected individuals may have this negative result, suggesting other etiologies for hereditary hemochromatosis. Methodology: Patient DNA is evaluated for C282Y (c.845G>A, p.Mje531Maw, NM_000410.3), H63D (c.187C>G, p.Tjd76Glc, NM_000410.3) and S65C variant (c.193A>T, p.Foi72Iny, NM_000410.3) missense variants in the HFE gene (NM_000410.3, GRCh37(hg19)) by multiplex polymerase chain reaction (PCR) followed by melting curve analysis. Disclaimer: This test was developed and its performance characteristics determined by [facility] [place] ([facility]). It has not been cleared or approved by the FDA. [facility] is regulated under CLIA as certified to perform high- complexity testing. This test is used for clinical purposes. It should not be regarded as investigational or for research. Testing and interpretation performed at [facility], [address] [place] [address], [place] [address]. CLIA Number: [id number] As reviewed by Myranda Bakre MD, PhD Test Performed by: [facility] [address] [place] [address]. [place] [address] Engineer Systems: Jose Luis Oseguera III, M.D. CLIA #[id number] Performed By: #### Constance CAAL, [facility], 2157-6, 2639-3 #### [facility] ([id number]) [address], [address] [place] [address] Hepatitis panel, acuteon HAV IgM IA Ql Non-Reactive Non-Reactive^N on-Reactive [facility] HBV core IgM IA Ql Negative Negative^ Negat esther [facility] HBV surface Ag IA Ql Negative Negativ e^Negat esther [facility] HCV Ab IA Ql Non-Reactive Non-Reactive^N on-Reactive [facility] Comment on above: If recent infection suspected, recommend repeat testing (>2 months). Xphgju-za-qzflxz ratio is <0.80. [facility] IRON PROFILEon 05-18-2023 Iron [Mass/Vol] 75 ug/dL Normal 50-212 [facility] Comment on above: Performed By: #### C BCA, CMP, 2156-08, 2638-3 #### [facility] ([id number]) [address], [address] [place] [address] IRON BINDING 328 ug/dL Normal 250-425 [facility] Comment on above: Performed By: #### C BCA, CMP, 2156-08, 2639-3 #### [facility] ([id number]) [address], [address] [place] [address] IRON SATURATION 23 % SATURATION Normal 20-50 [facility] Comment on above: Performed By: #### C BCA, CMP, 2156-08, 2638-3 #### [facility] ([id number]) [address], [address] [place] [address] LDH [Catalytic activity/Vol] on 05-18-2023 LDH 245 U/L High 100-235 [facility] Comment on above: Performed By: #### C BCA, CMP, 2156-08, 2638-3 #### [facility] ([id number]) [address], [address] [place] [address] LIVER PANELon 05-18-2023 Albumin [Mass/Vol] 4.6 g/dL Normal 3.2-5.3 [facility] Comment on above: Performed By: #### 2 064-4, LIVR, 2156-08, 1987-07, FEPR, 2532-0, 35367-2, THYR, 2276-4, 52964-5, 9, THYRAB, AHP #### [facility] ([id number]) [address], [address] [place] [address] ALP [Catalytic activity/Vol] 98 U/L Normal 39-130 [facility] Comment on above: Performed By: #### 2 064-4, LIVR, 2156-08, 1987-07, FEPR, 2532-0, 25480-8, THYR, 2276-4, 68992-6, 9, THYRAB, AHP #### [facility] ([id number]) [address], [address] [place] [address] ALT [Catalytic activity/Vol] 48 U/L High 0-40 [facility] Comment on above: Performed By: #### 2 064-4, LIVR, 2156-08, 1987-07, FEPR, 2532-0, 96564-4, THYR, 2276-4, 93424-3, 9, THYRAB, AHP #### [facility] ([id number]) [address], [address] [place] [address] AST [Catalytic activity/Vol] 25 U/L Normal 0-41 [facility] Comment on above: Performed By: #### 2 064-4, LIVR, 2156-08, 1987-07, FEPR, 2532-0, 33535-3, THYR, 2276-4, 32905-7, 9, THYRAB, AHP #### [facility] ([id number]) [address], [address] [place] [address] Bilirubin [Mass/Vol] 0.5 mg/dL Normal 0.3-1.2 [facility] Comment on above: Performed By: #### 2 064-4, LIVR, 2156-, 1987-07, FEPR, 2532-0, 32603-2, THYR, 2276-4, 79857-8, 213-9, THYRAB, AHP #### [facility] ([id number]) [address] [facility] [place] [address] Bilirubin.direct [Mass/Vol] 0.1 mg/dL Normal 0.0-0.4 [facility] Comment on above: Performed By: #### 2 064-4, LIVR, 2156-08, 1987-07, FEPR, 2532-0, 41773-1, THYR, 2276-4, 73392-9, 9, THYRAB, AHP #### [facility] ([id number]) [address] [facility], [address] [place] [address] Protein [Mass/Vol] 7.7 g/dL Normal 6.0-8.0 [facility] Comment on above: Performed By: #### 2 064-4, LIVR, 2156-08, 1987-07, FEPR, 2532-0, 53431-6, THYR, 2276-4, 84053-7, 2131-9, THYRAB, AHP #### [facility] ([id number]) [address] [facility], [address] [place] [address] Mitochondria M2 Ab IA Qn (S) on 05-18-2023 Mitochondrial Ab (M2) <0.1 Normal <0.1 (Negative) [facility] Comment on above: Result Comment: NOTE Test Performed by: [facility] [address] [place] [address] Pile Driver Operator: Jose Pisano M.D. Ph.D.; CLIA# [id number] Performed By: #### C BCA, CMP, 2156-6, 2639-3 #### [facility] ([id number]) [address], [address] [place] [address] Smooth muscle Ab IF Ql (S)on 05-18-2023 Smooth Muscle Ab Negative Normal Negative [facility] Comment on above: Result Comment: NOTE Negative: No further testing will be performed ADDITIONAL INFORMATION This test was developed and its performance characteristics determined by [facility] in a manner consistent with CLIA requirements. This test has not been cleared or approved by the U.S. Food and Drug Administration. Test Performed by: [facility] [address] [place] [address] Pile Driver Operator: Jose Pisano M.D. Ph.D.; CLIA# [id number] Performed By: #### C BCA, CMP, 6, 2639-3 #### [facility] ([id number]) [address], [address] [place] [address] THYROID ANTIBODIESon 024 Thyroglobulin Ab Qn [IU]/mL Normal <4.0 [facility] Comment on above: Performed By: #### C BCA, CMP, 2156-08, 2638-3 #### [facility] ([id number]) [address], [facility] [address] [place] [address] TPO Ab Qn [IU]/mL Normal <10 [facility] Comment on above: Performed By: #### C BCA, CMP, 6, 2638-3 #### [facility] ([id number]) [address], [address] [place] [address] THYROID PROFILEon 05-18-2023 Free T4 [Mass/Vol] 0.88 ng/dL Normal 0.61-1.60 [facility] Comment on above: Performed By: #### C BCA, CMP, 6, 2639-3 #### [facility] ([id number]) [address], [address] [place] [address] TSH 1.22 uIU/mL Normal 0.49-4.67 [facility] Comment on above: Performed By: #### Constance AFUA [facility], 2156-08, 9-3 #### [facility] ([id number]) [address] [facility] [address] [place] [address] VITAMIN B12on 05-18-2023 Cobalamin (Vitamin B12) [Mass/Vol] 334 pg/mL Normal 180-914 [facility] Comment on above: Performed By: #### C AFUA [facility], 2156-08, 2638-3 #### [facility] ([id number]) [address] [facility] [address] [place] [address] Vitamin D+Metabolites [Mass/ Vol]on 05-18-2023 VITAMIN D 25 HYD TOT 25.4 ng/mL Low 30-100 [facility] Comment on above: Result Comment: Vitamin D status 25 [place] Vitamin D Deficiency <20 ng/mL Insufficiency 20-29 ng/mL Sufficiency 30-100 ng/mL Toxicity >100 ng/mL NOTE: A pediatric reference range has not been established by the montessori program director of this kit. The [place] [employer] recommends a Vitamin D level of = or >20ng/mL in infants and children. Performed By: #### C AFUA [facility], 2156-08, 2638-3 #### [facility] ([id number]) [address] [place] [address] XR ABDOMEN AP 1 VWon 024 XR ABDOMEN AP 1 VW XR ABDOMEN AP 1 VW Clinical history: Chronic abdominal pain and stool burden FINDINGS: 1 View abdomen * Mild amount retained fecal content. * Bowel gas pattern nonobstructive. * No suspicious calcification. * No definite organomegaly. * No definite free air on this single view. * IMPRESSION: Unremarkable supine abdomen with mild amount retained fecal content. Finalized by Jaden Brock MD on 05/18/2023 2:33 PM Normal [facility] XR Abdomen APon 05-18-2023 Clinical history: Chronic abdominal pain and stool burden FINDINGS: 1 View abdomen * Mild amount retained fecal content. * Bowel gas pattern nonobstructive. * No suspicious calcification. * No definite organomegaly. * No definite free air on this single view. * IMPRESSION: Unremarkable supine abdomen with mild amount retained fecal content. Finalized by Jaden Brock MD on 05/18/2023 2:33 PM [facility] Jaden Brock MD - 05/18/2023 Clinical history: Chronic abdominal pain and stool burden FINDINGS: 1 View abdomen * Mild amount retained fecal content. * Bowel gas pattern nonobstructive. * No suspicious calcification. * No definite organomegaly. * No definite free air on this single view. * IMPRESSION: Unremarkable supine abdomen with mild amount retained fecal content. Finalized by Jaden Brock MD on 05/18/2023 2:33 PM [facility] Radiology Study observation (narrative) [facility] XR Abdomen APOrdered By: Ron Brock on 05-18-2023 [facility] Work Phone: XR SACROILIAC JOINTS MIN 3 V WSon 05-18-2023 XR SACROILIAC JOINTS MIN 3 VWS XR SACROILIAC JOINTS MIN 3 VWS XR SACROILIAC JOINTS MIN 3 VWS Chronic low back pain without sciatica, unspecified back pain laterality Findings: There is no fracture or destructive lesion. Impression: * No acute findings. Unremarkable SI joints. * Consider MRI if you suspect occult process. Finalized by Corbin Long MD on 05/18/2023 2:11 PM Normal [facility] CBC AND AUTO DIFFon 05-14-19 24 ABSOLUTE BASOPHIL 0.1 X10E9/L Normal 0.0-0.2 [facility] Comment on above: Performed By: #### C BCA, CMP, 2157-6, 2639-3 #### [facility] ([id number]) [address], [address] [place] [address] ABSOLUTE NEUTROPHIL 7.6 X10E9/L High 1.5-6.6 [facility] Comment on above: Performed By: #### C BCA, CMP, 2156-08, 2638-05 #### [facility] ([id number]) [address], [address] [place] [address] Basophils/100 WBC (Bld) 0.5 % Normal [facility] Comment on above: Performed By: #### C BCA, CMP, 2156-08, 2638-05 #### [facility] ([id number]) [address], [address] [place] [address] Eosinophils (Bld) [#/Vol] 0.2 10*3/uL Normal 0.0-0.4 [facility] Comment on above: Performed By: #### C BCA, CMP, 2156-08, 2638-05 #### [facility] ([id number]) [address], [address] [place] [address] Eosinophils/100 WBC (Bld) 2.0 % Normal [facility] Comment on above: Performed By: #### C BCA, CMP, 2156-08, 2638-05 #### [facility] ([id number]) [address], [address] [place] [address] Erythrocyte distribution width (RBC) [Ratio] 13.4 % Normal 11.5-15.0 [facility] Comment on above: Performed By: #### C BCA, CMP, 2156-08, 2638-05 #### [facility] ([id number]) [address], [address] [place] [address] Hematocrit (Bld) [Volume fraction] 46.3 % Normal 39-49 [facility] Comment on above: Performed By: #### C BCA, CMP, 2156-08, 2638-05 #### [facility] ([id number]) [address], [address] [place] [address] Hemoglobin (Bld) [Mass/Vol] 16.1 g/dL Normal 13.0-17.0 [facility] Comment on above: Performed By: #### C BCA, CMP, 2156-08, 2638-05 #### [facility] ([id number]) [address], [address] [place] [address] Lymphocytes (Bld) [#/Vol] 1.8 10*3/uL Normal 1.0-3.5 [facility] Comment on above: Performed By: #### C BCA, CMP, 2156-08, 2638-05 #### [facility] ([id number]) [address], [address] [place] [address] Lymphocytes/100 WBC (Bld) 16.9 % Normal [facility] Comment on above: Performed By: #### C BCA, CMP, 2156-08, 2638-05 #### [facility] ([id number]) [address], [address] [place] [address] MCH (RBC) [Entitic mass] 30.4 pg Normal 27-34 [facility] Comment on above: Performed By: #### C BCA, CMP, 2156-08, 2638-05 #### [facility] ([id number]) [address], [address] [place] [address] MCHC (RBC) [Mass/Vol] 34.8 g/dL Normal 32-36 [facility] Comment on above: Performed By: #### C BCA, CMP, 2156-08, 2638-05 #### [facility] ([id number]) [address], [address] [place] [address] MCV (RBC) [Entitic vol] 87 fL Normal 80-100 [facility] Comment on above: Performed By: #### C BCA, CMP, 2156-08, 2639-3 #### [facility] ([id number]) [address], [address] [place] [address] Monocytes (Bld) [#/Vol] 0.9 10*3/uL Normal 0-0.9 [facility] Comment on above: Performed By: #### C BCA, CMP, 2156-08, 2638- #### [facility] ([id number]) [address], [facility] [address] [place] [address] Monocytes/100 WBC (Bld) 8.2 % Normal [facility] Comment on above: Performed By: #### C BCA, CMP, 2156-08, 2638-05 #### [facility] ([id number]) [address], [address] [place] [address] Neutrophils/100 WBC (Bld) 72.4 % Normal [facility] Comment on above: Performed By: #### C BCA, CMP, 2156-08, 2638-05 #### [facility] ([id number]) [address], [address] [place] [address] Platelet mean volume (Bld) [Entitic vol] 7.4 fL Normal 7-12 [facility] Comment on above: Performed By: #### C BCA, CMP, 2156-08, 2638-05 #### [facility] ([id number]) [address], [facility] [address] [place] [address] Platelets (Bld) [#/Vol] 291 10*3/uL Normal 150-450 [facility] Comment on above: Performed By: #### C BCA, CMP, 2156-08, 2638- #### [facility] ([id number]) [address], [address] [place] [address] RBC COUNT 5.30 X10E12/L Normal 4.10-5.70 [facility] Comment on above: Performed By: #### C BCA, CMP, 2156-08, 2638-05 #### [facility] ([id number]) [address], [address] [place] [address] WBC (Bld) [#/Vol] 10.5 10*3/uL Normal 4.0-11.0 [facility] Comment on above: Performed By: #### C BCA, CMP, 2156-08, 2638-05 #### [facility] ([id number]) [address], [address] [place] [address] CK [Catalytic activity/Vol]o n 05-14-2023 CPK 83 U/L Normal 24-195 [facility] Comment on above: Performed By: #### C BCA, CMP, 2156-08, 2638-05 #### [facility] ([id number]) [address], [address] [place] [address] COMPREHENSIVE METABOLIC PANE Drake 05-14-2023 Albumin [Mass/Vol] 4.8 g/dL Normal 3.2-5.3 [facility] Comment on above: Performed By: #### C BCA, CMP, 2156-08, 2638-05 #### [facility] ([id number]) [address], [address] [place] [address] ALP [Catalytic activity/Vol] 97 U/L Normal 39-130 [facility] Comment on above: Performed By: #### C BCA, CMP, 2156-08, 2638-05 #### [facility] ([id number]) [address], [address] [place] [address] ALT [Catalytic activity/Vol] 49 U/L High 0-40 [facility] Comment on above: Performed By: #### C BCA, CMP, 2156-08, 2638-05 #### [facility] ([id number]) [address], [address] [place] [address] Anion gap [Moles/Vol] 8 mmol/L Normal 5-15 [facility] Comment on above: Performed By: #### C BCA, CMP, 2156-08, 2638-3 #### [facility] ([id number]) [address], [address] [place] [address] AST [Catalytic activity/Vol] 22 U/L Normal 0-41 [facility] Comment on above: Performed By: #### C BCA, CMP, 2156-08, 2638-3 #### [facility] ([id number]) [address], [address] [place] [address] Bilirubin [Mass/Vol] 0.7 mg/dL Normal 0.3-1.2 [facility] Comment on above: Performed By: #### C BCA, CMP, 2156-08, 2638-05 #### [facility] ([id number]) [address], [address] [place] [address] Calcium [Mass/Vol] 9.6 mg/dL Normal 8.5-10.5 [facility] Comment on above: Performed By: #### C BCA, CMP, 2156-08, 2638- #### [facility] ([id number]) [address], [address] [place] [address] Chloride [Moles/Vol] 100 mmol/L Normal 98-109 [facility] Comment on above: Performed By: #### C BCA, CMP, 2156-08, 2638-3 #### [facility] ([id number]) [address], [address] [place] [address] CO2 [Moles/Vol] 27 mmol/L Normal 22-32 [facility] Comment on above: Performed By: #### C BCA, CMP, 2156-08, 2638-3 #### [facility] ([id number]) [address], [address] [place] [address] Creatinine [Mass/Vol] 1.03 mg/dL Normal 0.60-1.30 [facility] Comment on above: Result Comment: METH OD TRACEABLE TO IDMS STANDARD Performed By: #### C BCA, CMP, 2156-08, 2638-3 #### [facility] ([id number]) [address], [address] [place] [address] eGFR (CKD-EPI) NON-RACE DEPENDENT >90 Normal >59 [facility] Comment on above: Result Comment: Reported eGFR is based on the CKD-EPI 2020 equation that does not use a race coefficient. Performed By: #### C BCA, CMP, 2156-08, 2638- #### [facility] ([id number]) [address], [address] [place] [address] Glucose [Mass/Vol] 100 mg/dL High 65-99 [facility] Comment on above: Performed By: #### C BCA, CMP, 2156-08, 2638- #### [facility] ([id number]) [address], [address] [place] [address] Potassium [Moles/Vol] 4.2 mmol/L Normal 3.5-5.0 [facility] Comment on above: Performed By: #### C BCA, CMP, 2156-08, 2638-05 #### [facility] ([id number]) [address], [address] [place] [address] Protein [Mass/Vol] 8.1 g/dL High 6.0-8.0 [facility] Comment on above: Performed By: #### C BCA, CMP, 2156-08, 2638- #### [facility] ([id number]) [address], [address] [place] [address] Sodium [Moles/Vol] 135 mmol/L Normal 134-146 [facility] Comment on above: Performed By: #### C BCA, CMP, 2156-08, 2638-3 #### [facility] ([id number]) [address], [address] [place] [address] Urea nitrogen [Mass/Vol] 15 mg/dL Normal 5-23 [facility] Comment on above: Performed By: #### C BCA, CMP, 2156-6, 2639-3 #### [facility] ([id number]) [address] [place] [address] Myoglobin [Mass/Vol]on 05-14 SERUM MYOGLOBIN 24.0 ng/mL Normal 17.4-105.7 [facility] Comment on above: Performed By: #### C BCA, CMP, 2156-08, 2639-3 #### [facility] ([id number]) [address] [place] [address] Troponin I.cardiac (Bld) [Ma ss/Vol]on 05-14-2023 PORTABLE TROPONIN <0.01 Normal 0.00-0.08 [facility] Comment on above: Result Comment: NEW REFERENCE RANGE Performed By: #### 4 2757-5 #### [facility] ([id number]) [address] [place] [address] No Panel InformationOrdered By: Tariq Hoyos on 11-27-2022 Semen Analysis Comment See comment [facility] Comment on above: No Abnormal specimen characteristics noted. Semen Appearance Normal Normal [facility] Semen pH 8.0 7.2-10 [facility] Semen Round Cell Concentration [facility] Semen WBC Concentration <1.0 M/mL <0.9 [facility] Sperm % Non-Motile 41 % [facility] Sperm Motility Total 59.0 % >40 [facility] Qualitative semen viscosityO rdered By: Tariq Hoyos on 11-27-2022 Viscosity Ql (Tyra) Normal Normal [facility] Semen Analysis, Fertilityon 11-27-2022 Debris/Round Cells Gross Normal [facility] Comment on above: Order Comment: Metho d of Collection:: Masturbation Has the patient had a vasectomy?: N Type of Specimen Container:: Sterile Container Abstinence Period:: 48 HOURS Kept at body temperature?: Y Any Collection or Transport Problems?: N Performed By: #### S EMCOMP #### [facility] [address] [place] [address] [place] Immotile Sperm 41 % Normal [facility] Comment on above: Order Comment: Metho d of Collection:: Masturbation Has the patient had a vasectomy?: N Type of Specimen Container:: Sterile Container Abstinence Period:: 48 HOURS Kept at body temperature?: Y Any Collection or Transport Problems?: N Performed By: #### S EMCOMP #### [facility] [address] [place] [address] [place] Non-Progression Sperm Motili 11 % Normal [facility] Comment on above: Order Comment: Metho d of Collection:: Masturbation Has the patient had a vasectomy?: N Type of Specimen Container:: Sterile Container Abstinence Period:: 48 HOURS Kept at body temperature?: Y Any Collection or Transport Problems?: N Performed By: #### S EMCOMP #### [address] Normal Sperm Morphology 10.0 % Normal >=4.0 [facility] Comment on above: Order Comment: Metho d of Collection:: Masturbation Has the patient had a vasectomy?: N Type of Specimen Container:: Sterile Container Abstinence Period:: 48 HOURS Kept at body temperature?: Y Any Collection or Transport Problems?: N Performed By: #### S EMCOMP #### [facility] [address] [place] [address] [place] Rapid Progression Sperm Motili 48 % Normal [facility] Comment on above: Order Comment: Metho d of Collection:: Masturbation Has the patient had a vasectomy?: N Type of Specimen Container:: Sterile Container Abstinence Period:: 48 HOURS Kept at body temperature?: Y Any Collection or Transport Problems?: N Performed By: #### S EMCOMP #### [facility] [address] [place], [place] [id number] [place] Semen Appearance Normal Normal Normal [facility] Comment on above: Order Comment: Metho d of Collection:: Masturbation Has the patient had a vasectomy?: N Type of Specimen Container:: Sterile Container Abstinence Period:: 48 HOURS Kept at body temperature?: Y Any Collection or Transport Problems?: N Performed By: #### S EMCOMP #### [place] [address] [place] Semen Comment Normal [facility] Comment on above: Order Comment: Metho d of Collection:: Masturbation Has the patient had a vasectomy?: N Type of Specimen Container:: Sterile Container Abstinence Period:: 48 HOURS Kept at body temperature?: Y Any Collection or Transport Problems?: N Result Comment: No A bnormal specimen characteristics noted. PERFORMED BY: [place] [address] PATHOLOGIST FOOD AND BEVERAGE ANALYST MELISSA JULIEN M.D. Performed By: #### S EMCOMP #### [address] Semen Liquefaction Normal Normal <=60 min [facility] Comment on above: Order Comment: Metho d of Collection:: Masturbation Has the patient had a vasectomy?: N Type of Specimen Container:: Sterile Container Abstinence Period:: 48 HOURS Kept at body temperature?: Y Any Collection or Transport Problems?: N Performed By: #### S EMCOMP #### [address] Semen pH 8.0 Normal >=7.2 [facility] Comment on above: Order Comment: Metho d of Collection:: Masturbation Has the patient had a vasectomy?: N Type of Specimen Container:: Sterile Container Abstinence Period:: 48 HOURS Kept at body temperature?: Y Any Collection or Transport Problems?: N Performed By: #### S EMCOMP #### [place] [address] [place] Semen Viscosity Normal Normal Normal [facility] Comment on above: Order Comment: Metho d of Collection:: Masturbation Has the patient had a vasectomy?: N Type of Specimen Container:: Sterile Container Abstinence Period:: 48 HOURS Kept at body temperature?: Y Any Collection or Transport Problems?: N Performed By: #### S EMCOMP #### [facility] [address] Semen Volume 1.0 mL Low >=1.5 [facility] Comment on above: Order Comment: Metho d of Collection:: Masturbation Has the patient had a vasectomy?: N Type of Specimen Container:: Sterile Container Abstinence Period:: 48 HOURS Kept at body temperature?: Y Any Collection or Transport Problems?: N Performed By: #### S EMCOMP #### [address] Sperm Concentration 27.2 Normal >=15 [facility] Comment on above: Order Comment: Metho d of Collection:: Masturbation Has the patient had a vasectomy?: N Type of Specimen Container:: Sterile Container Abstinence Period:: 48 HOURS Kept at body temperature?: Y Any Collection or Transport Problems?: N Performed By: #### S EMCOMP #### [address] Total Motility (ID+BODY AND FENDER MECHANIC APPRENTICE) 59.0 % Normal >=40 (ID+BODY AND FENDER MECHANIC APPRENTICE) [facility] Comment on above: Order Comment: Metho d of Collection:: Masturbation Has the patient had a vasectomy?: N Type of Specimen Container:: Sterile Container Abstinence Period:: 48 HOURS Kept at body temperature?: Y Any Collection or Transport Problems?: N Performed By: #### S EMCOMP #### [address] WBC Concent, Semen <1.0 Normal <1.0 [facility] Comment on above: Order Comment: Metho d of Collection:: Masturbation Has the patient had a vasectomy?: N Type of Specimen Container:: Sterile Container Abstinence Period:: 48 HOURS Kept at body temperature?: Y Any Collection or Transport Problems?: N Performed By: #### S EMCOMP #### [address] Semen liquefaction time viktoriya urementOrdered By: Tariq Hoyos on 11-27-2022 Liquefaction (Tyra) [Time] Normal <=60 min [facility] Semen volumeOrdered By: Ankur Hoyos on 11-27-2022 Specimen volume (Tyra) 1.0 mL >1.5 [facility] Sperm countOrdered By: Tariq Hoyos on 11-27-2022 Spermatozoa (Tyra) [#/Vol] 27.2 M/mL >15 [facility] Sperm morphologyOrdered By: Tariq Hoyos on 11-27-2022 Spermatozoa Nom (Tyra) 10.0 % >4.0 [facility] [id number] 04-04-2021 SARS-CoV-2 (COVID-19) RNA ISABEL+probe Ql (Unsp spec) Normal [facility] Comment on above: Performed By: #### C OVID #### [employer] [address] [place] [address] Pile Driver Operator: Basil Maciel MD SARS-CoV-2 (COVID-19) RNA ISABEL+probe Ql (Unsp spec) Detected Abnormal NOTDET [facility] Comment on above: Result Comment: The specimen is POSITIVE for SARS-Cov-2, the novel coronavirus associated with COVID-19. Coco SARS-CoV-2 for use on the Coco 6800/8800 Systems is a real-time RT-PCR test intended for the qualitative detection of nucleic acids from SARS-CoV-2 in clinician-collected nasal, nasopharyngeal, and oropharyngeal swab specimens from individuals who meet COVID-19 clinical and/or epidemiological criteria. Coco SARS-CoV-2 is for use only under Emergency Use Authorization (EUA) in laboratories certified under Clinical Laboratory Improvement Amendments of 1988 (CLIA), 42 U.S.C. ?263a, that meet requirements to perform high or moderate complexity tests. An individual without symptoms of COVID-19 and who is not shedding SARS-CoV-2 virus would expect to have a negative (not detected) result in this assay. Fact sheet for Healthcare Providers: https://www.fda.gov/media/657475/download Fact sheet for Patients: https://www.fda.gov/media/340934/download METHODOLOGY: RT-PCR Results reported to the appropriate Health Department Performed By: #### C OVID #### [employer] [facility] [place] [address] Pile Driver Operator: Basil Maciel MD SARS-CoV-2 (COVID-19) RNA ISABEL+probe Ql (Unsp spec) .NASOPHARYNGEAL SWAB Normal [facility] Comment on above: Performed By: #### C OVID #### [address] [address] Pile Driver Operator: Basil Maciel MD Chlamydia/GC DNA, Uron 07-24 Chlamydia Probe, Ur Negative Normal NEG [facility] Comment on above: Result Comment: CHLA MYDIA TRACHOMATIS DNA not detected by nucleic acid amplification. This test is intended for medical purposes only and is not valid for the evaluation of suspected sexual abuse or for other forensic purposes. In certain contexts, culture may be required to meet applicable laws and regulations for diagnosis of C. trachomatis and N. gonorrhoeae infections. Per 2014 CDC recommendations, this test does not include confirmation of positive results by an alternative nucleic acid target. Performed By: #### U CGP #### [address] [address] Pile Driver Operator: Basil Maciel MD Gonorrhea Probe, Ur Negative Normal NEG [facility] Comment on above: Result Comment: NEIS SERIA GONORRHOEAE DNA not detected by nucleic acid amplification. This test is intended for medical purposes only and is not valid for the evaluation of suspected sexual abuse or for other forensic purposes. In certain contexts, culture may be required to meet applicable laws and regulations for diagnosis of C. trachomatis and N. gonorrhoeae infections. Per 2014 CDC recommendations, this test does not include confirmation of positive results by an alternative nucleic acid target. Performed By: #### U CGP #### [address] [address] Pile Driver Operator: Basil Maciel MD HIV Ag/Abon 07-25-2019 HIV Ag/Ab NONREACTIVE Normal NR [facility] Comment on above: Result Comment: No l aboratory evidence of HIV infection. If acute HIV infection is suspected, consider testing for HIV-1 RNA. Performed By: #### T REP, HIVCMB #### [address] [place], [place] [id number] Pile Driver Operator: Basil Maciel MD T.pallidum Ab Screenon 07-24 T.pallidum Ab Screen NONREACTIVE Normal NR [facility] Comment on above: Result Comment: T. pallidum antibodies are not detected. There is no serological evidence of infection with T. pallidum (early primary syphilis cannot be excluded). Retest in 2-4 weeks if syphilis is clinically suspect. Performed By: #### T REP, HIVCMB #### [facility] [address] [place], [place] [id number] Pile Driver Operator: Basil Maciel MD HIV Screenon 07-24-2019 HIV Ag/Ab NONREACTIVE NONREACTIVE [employer], [place] Comment on above: No laboratory eviden ce of HIV infection. If acute HIV infection is suspected, consider testing for HIV-1 RNA. T. Pallidum Abon 07-24-2019 T. pallidum, IgG NONREACTIVE NONREACTIVE [facility] [place] Comment on above: T. pallidum antibodies are not detected. There is no serological evidence of infection with T. pallidum (early primary syphilis cannot be excluded). Retest in 2-4 weeks if syphilis is clinically suspect. Vital Signs Date Time Vital Sign Value Performing Clinician Efrain najera 05-18-2023 12:20-0500 Body height 177.8 cm Ambreen Avelar APRNPayAllies Work Phone: [facility] 05-18-2023 12:20-0500 Body mass index (BMI) [Ratio] 37.16 kg/m2 Ambreen Avelar APRNP[employer]Allies [facility] 05-18-2023 12:20-0500 Body weight 117.48 kg Ambreen Avelar APRNP[employer]Allies Work Phone: [facility] 05-18-2023 12:20-0500 Diastolic blood pressure 82 mm[Hg] Ambreen Avelar APRNP[employer] Work Phone: [facility] 05-18-2023 12:20-0500 Heart rate 92 /min Ambreen Avelar APRN-SPRINKLING TRUCK DRIVER Work Phone: [facility] 05-18-2023 12:20-0500 Systolic blood pressure 122 mm[Hg] Ambreen Avelar APRN-SPRINKLING TRUCK DRIVER Work Phone: [facility] 04-27-2023 14:32-0500 Body height 177.8 cm Rona Shendge V, PA Work Phone: [facility] 04-27-2023 14:32-0500 Body mass index (BMI) [Ratio] 36.96 kg/m2 Rona Shendge V, PA Work Phone: [facility] 04-27-2023 14:32-0500 Body weight 116.85 kg Rona Shendge V, PA Work Phone: [facility] 04-27-2023 14:32-0500 Diastolic blood pressure 84 mm[Hg] Rona Shendge V, PA Work Phone: [facility] 04-27-2023 14:32-0500 Respiratory rate 18 /min Rona Shendge V, PA Work Phone: [facility] 04-27-2023 14:32-0500 Systolic blood pressure 140 mm[Hg] Rona Shendge V, PA Work Phone: [facility] Encounters Encounter Date Encounter Type Care Provider Facility Start: 07-16-2023 End: 07-16-2023 ambulatory SHAMIKA RICKETTS Not Available Start: 07-03-2023 End: 07-06-2023 ambulatory AMBREEN Gibson [facility] Start: 06-07-2023 Telephone encounter Maico morales MD Work Phone: [facility] Start: 05-28-2023 End: 05-28-2023 ambulatory RONA SHENDGE V [facility] Start: 05-28-2023 End: 05-28-2023 Office outpatient visit 25 minutes Rona Shendge PA Work Phone: [facility] Comment on above: Positive LOUIS (antinu clear antibody) (Primary Dx) Start: 05-23-2023 End: 05-24-2023 Emergency department patient visit JANNET ARECHIGA [facility] Start: 05-23-2023 End: 05-23-2023 Emergency department patient visit [facility] Start: 05-22-2023 End: 05-22-2023 Evaluation and management of inpatient JS STRAUSS [facility] Start: 05-21-2023 End: 05-22-2023 [facility] Start: 05-20-2023 End: 05-21-2023 ambulatory [facility] Start: 05-18-2023 End: 05-19-2023 ambulatory [facility] Start: 05-18-2023 End: 05-18-2023 ambulatory [facility] Start: 05-18-2023 End: 05-18-2023 Office outpatient new 45 minutes [facility] 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 Work Phone: [facility] Comment on above: Change in bowel move ment (Primary Dx); Elevated ALT measurement; Elevated ferritin; Black stools Start: 05-14-2023 End: 05-14-2023 Emergency department patient visit [facility] Start: 05-14-2023 Telephone encounter Alicia Martinez CMA [facility] - Pawel Page MD Start: 05-12-2023 Orders Only Rona COSBY Work Phone: [facility] Comment on above: Change in bowel move ment (Primary Dx); Elevated ferritin Start: 05-07-2023 Telephone encounter [facility] Comment on above: NEW PATIENT REFERRAL Start: 05-04-2023 Orders Only Rona COSBY Work Phone: [facility] Comment on above: Vitamin D deficiency (Primary Dx) Start: 04-27-2023 End: 04-27-2023 ambulatory RONA LAMB V [facility] Start: 04-27-2023 End: 04-27-2023 Office outpatient new 45 minutes Rona COSBY Work Phone: [facility] Comment on above: Chronic fatigue synd mere (Primary Dx); Speech disturbance, unspecified type; Seborrheic dermatitis; Brain fog; Tinea pedis of both feet; Chronic low back pain without sciatica, unspecified back pain laterality Start: 11-27-2022 End: 11-27-2022 ambulatory NON STAFF Facility:[facility] Start: 11-27-2022 End: 11-27-2022 ambulatory NON STAFF [facility] Work Phone: Start: 11-27-2022 End: 11-27-2022 Patient encounter procedure [facility] Work Phone: Start: 04-04-2021 End: 04-04-2021 ambulatory ALEX PYLE [facility] Start: 07-24-2019 End: 07-25-2019 Patient encounter procedure ANALISA SIMMONS [facility] Start: 07-24-2019 End: 07-24-2019 Subsequent hospital visit by physician Alex [facility] Comment on above: STD exposure Procedures Date Procedure Procedure Detail Performing Clinician Start: 07-03-2023 Follow-up visit Follow-up SUNNI AVELAR Start: 07-24-2019 Antibody hiv-1&hiv-2 single result ANALISA SIMMONS Start: 07-24-2019 Antibody treponema pallidum ANALISA SIMMONS Start: 07-24-2019 C.TRACHOMATIS N.GONORRHOEAE DNA, URINE ANALISA SIMMONS Start: 07-24-2019 Antibody hiv-1&hiv-2 single result Analisa Simmons Work Phone: Start: 07-24-2019 T. PALLIDUM AB Analisa Simmons Work Phone: Plan of Treatment Date Care Activity Detail Author Start: 04-16-2033 DTaP,Tdap and Td Vaccines (4 - Td or Tdap) DTaP,Tdap and Td Vaccines (4 - Td or Tdap) [facility] Start: 05-23-2024 Adult BMI Screening Adult BMI Screening [facility] Start: 05-23-2024 Tobacco Screening Tobacco Screening [facility] Start: 05-18-2024 Adult BMI Screening Adult BMI Screening [facility] Start: 05-18-2024 Tobacco Screening Tobacco Screening [facility] Start: 04-28-2024 Tobacco Screening Tobacco Screening [facility] Start: 04-27-2024 Adult BMI Screening Adult BMI Screening [facility] Start: 07-03-2023 End: 07-03-2023 Patient encounter procedure 07/03/2023 8:00 AM EDT Off ice Visit [facility] [address] [facility] [address] [place] [phone] Ambreen Avelar, 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 [address] [place] [address] [facility] Start: 05-28-2023 End: 05-27-2024 Anticardiolipin AB IgG IgA IgM Anticardiolipin AB IgG IgA IgM Lab Routine Positive LOUIS (antinuclear antibody) Expected: 05/28/2023 (Approximate), Expires: 05/27/2024 [facility] Comment on above: Expected: 05/28/2023 (Approximate), Expi res: 05/27/2024 Start: 05-28-2023 End: 05-27-2024 Beta-2 glycoprotein antibodies Beta-2 glycoprotein antibodies Lab Routine Positive LOUIS (antinuclear antibody) Expected: 05/28/2023 (Approximate), Expires: 05/27/2024 [facility] Comment on above: Expected: 05/28/2023 (Approximate), Expi res: 05/27/2024 Start: 05-28-2023 End: 05-27-2024 Complement profile (C3 AND C4) Complement profile (C3 AND C4) Lab Routine Positive LOUIS (antinuclear antibody) Expected: 05/28/2023 (Approximate), Expires: 05/27/2024 [facility] Work Phone: Comment on above: Expected: 05/28/2023 (Approximate), Expi res: 05/27/2024 Start: 05-28-2023 End: 05-27-2024 DRVVT DRVVT Lab Routine Positive LOUIS (antinuclear antibody) Expected: 05/28/2023 (Approximate), Expires: 05/27/2024 [facility] Comment on above: Expected: 05/28/2023 (Approximate), Expi res: 05/27/2024 Start: 05-28-2023 End: 05-27-2024 LORE Panel LORE Panel Lab Routine Positive LOUIS (antinuclear antibody) Expected: 05/28/2023 (Approximate), Expires: 05/27/2024 [facility] Comment on above: Expected: 05/28/2023 (Approximate), Expi res: 05/27/2024 Start: 05-28-2023 End: 05-27-2024 Unlisted Lab Test Unlisted Lab Test Lab Routin e Positive LOUIS (antinuclear antibody) Expected: 05/28/2023 (Approximate), Expires: 05/27/2024 [facility] Comment on above: Expected: 05/28/2023 (Approximate), Expi res: 05/27/2024 Start: 05-28-2023 End: 05-27-2024 Urinalysis Urinalysis Lab Routine Positive LOUIS (antinuclear antibody) Expected: 05/28/2023 (Approximate), Expires: 05/27/2024 [facility] Comment on above: Expected: 05/28/2023 (Approximate), Expi res: 05/27/2024 Start: 05-28-2023 End: 05-28-2023 Patient encounter procedure 05/28/2023 10:00 AM EST Office Visit [facility] [address] [place] [phone] Rona Lamb PA [address] [phone] [facility] Start: 05-21-2023 End: 02-23-2024 ambulatory 05/21/2023 8:00 AM EST Offic e Ultrasound [facility] [address] [facility] [place] [phone] [facility] Start: 05-21-2023 End: 05-21-2023 Admission to same day surgery center 05/21/2023 7:00 AM EST - 05/21/2023 8:00 AM EST Surgery [facility] [address] [place] [phone] Maico Joshua MD [address] [place] [address] ESOPHAGOGASTRODUODENOSCOPY DIAGNOSTIC [49393 (CPT )] [facility] Comment on above: ESOPHAGOGASTRODUODENOSCOPY DIAGNOSTIC [4 9375 (CPT )] Start: 05-21-2023 End: 05-21-2023 Colonoscopy flx dx w/collj spec when pfrmd COLONOSCOPY DIAGNOSTIC / SCREENING change in bowel movement 05/21/2023 7:00 AM EST [facility] Start: 05-21-2023 End: 05-21-2023 Esophagogastroduodenoscopy transoral diagnostic ESOPHAGOGASTRODUODENOSCOPY DIAGNOSTIC change in bowel movement 05/21/2023 7:00 AM EST [facility] Start: 05-21-2023 Subsequent hospital visit by physician 05/21/2023 7:00 AM EST Hospital Encounter [facility] [address] [place] [phone] Maico Joshua MD [address] [place] [address] [facility] Start: 05-18-2023 End: 05-18-2023 Patient encounter procedure 05/18/2023 12:45 PM EST [facility] [facility] [address] [facility] [address] [place] [address] Ambreen Avelar, 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 [address] [place] [address] [facility] Start: 05-14-2023 End: 05-14-2023 Patient encounter procedure 05/14/2023 10:00 AM EST Office Visit [facility] - Pawel Page MD [address] [place] [address] [address] [place] [id number] Pawel Page MD [address] [facility], [address] [place] [address] [facility] - Pawel Page MD Start: 04-27-2023 End: 04-27-2024 Aldolase Aldolase Lab Routine Chronic fatigue syndrome Expected: 04/27/2023 (Approximate), Expires: 04/27/2024 [facility] Comment on above: Expected: 04/27/2023 (Approximate), Expi res: 04/27/2024 Start: 04-27-2023 End: 04-27-2024 Antinuclear Ab, HEp-2 Substrate, S Antinuclear Ab, HEp-2 Substrate, S Lab Routine Chronic fatigue syndrome Expected: 04/27/2023 (Approximate), Expires: 04/27/2024 [facility] Comment on above: Expected: 04/27/2023 (Approximate), Expi res: 04/27/2024 Start: 04-27-2023 End: 04-27-2024 C-reactive protein C-reactive protein Lab Routine Chronic fatigue syndrome Expected: 04/27/2023 (Approximate), Expires: 04/27/2024 [facility] Comment on above: Expected: 04/27/2023 (Approximate), Expi res: 04/27/2024 Start: 04-27-2023 End: 04-27-2024 CK Total CK Total Lab Routine Chronic fatigue syndrome Expected: 04/27/2023 (Approximate), Expires: 04/27/2024 [facility] Comment on above: Expected: 04/27/2023 (Approximate), Expi res: 04/27/2024 Start: 04-27-2023 End: 04-27-2024 Cyanocobalamin vitamin b-12 Vitamin B12 Lab Routine Chronic fatigue syndrome Expected: 04/27/2023, Expires: 04/27/2024 [facility] Comment on above: Expected: 04/27/2023, Expires: Start: 04-27-2023 End: 04-27-2024 Erythrocyte sedimentation rate Erythrocyte Sedimentati on Rate (ESR) Lab Routine Chronic fatigue syndrome Expected: 04/27/2023 (Approximate), Expires: 04/27/2024 [facility] Comment on above: Expected: 04/27/2023 (Approximate), Expi res: 04/27/2024 Start: 04-27-2023 End: 04-27-2024 Ferritin [Mass/volume] in Serum or Plasma Ferritin Lab Routine Chronic fatigue syndrome Expected: 04/27/2023 (Approximate), Expires: 04/27/2024 [facility] Comment on above: Expected: 04/27/2023 (Approximate), Expi res: 04/27/2024 Start: 04-27-2023 End: 04-27-2024 Hepatic function 2000 panel - Serum or Plasma Hepatic function panel Lab Routine Chronic fatigue syndrome Expected: 04/27/2023 (Approximate), Expires: 04/27/2024 [facility] Comment on above: Expected: 04/27/2023 (Approximate), Expi res: 04/27/2024 Start: 04-27-2023 End: 04-27-2024 Iron and TIBC Iron and TIBC Lab Routine Chronic fatigue syndrome Expected: 04/27/2023 (Approximate), Expires: 04/27/2024 [facility] Comment on above: Expected: 04/27/2023 (Approximate), Expi res: 04/27/2024 Start: 04-27-2023 End: 04-27-2024 LDH LDH Lab Routine Chronic fatigue syndrome Expected: 04/27/2023 (Approximate), Expires: 04/27/2024 [facility] Comment on above: Expected: 04/27/2023 (Approximate), Expi res: 04/27/2024 Start: 04-27-2023 End: 04-27-2024 Thyroid antibodies includes TPO and TGAB Thyroid antibodies includes TPO and TGAB Lab Routine Chronic fatigue syndrome Expected: 04/27/2023 (Approximate), Expires: 04/27/2024 [facility] Comment on above: Expected: 04/27/2023 (Approximate), Expi res: 04/27/2024 Start: 04-27-2023 End: 04-27-2024 Thyroid profile includes TSH FT4 Thyroid profile includes TSH FT4 Lab Routine Chronic fatigue syndrome Expected: 04/27/2023 (Approximate), Expires: 04/27/2024 [employer]: Comment on above: Expected: 04/27/2023 (Approximate), Expi res: 04/27/2024 Start: 04-27-2023 End: 04-27-2024 Vitamin D 25 hydroxy Vitamin D 25 hydroxy Lab Routine Chronic fatigue syndrome Expected: 04/27/2023, Expires: 04/27/2024 [facility] Comment on above: Expected: 04/27/2023, Expires: Start: 04-27-2023 End: 04-27-2024 XR Lumbar spine 2 or 3 Views X-ray spine lumbar 2 or 3 views Imaging Routine Chronic low back pain without sciatica, unspecified back pain laterality Expected: 04/27/2023, Expires: 04/27/2024 [facility] Comment on above: Expected: 04/27/2023, Expires: Start: 04-27-2023 End: 04-27-2024 XR Sacroiliac Joint 3 Views X-ray sacroiliac joints minimum 3 views Imaging Routine Chronic low back pain without sciatica, unspecified back pain laterality Expected: 04/27/2023, Expires: 04/27/2024 [facility] Comment on above: Expected: 04/27/2023, Expires: Start: 11-27-2022 Influenza vaccination Influenza Vaccine [facility] Start: 11-28-2019 Influenza vaccination Flu vaccine (Season Ended) Katie Christina h- [place], [place] Start: 10-24-2006 DTaP/Tdap/Td vaccine (1 - Tdap) DTaP/Tdap/Td vaccine (1 - Tdap) [place], [place] Start: 10-24-2005 Adult BMI Follow Up Plan Adult BMI Follow Up Plan [facility] Start: 10-24-2002 HIV screening HIV screen [place], [place] Start: 1999 Depression Screening Depression Screening [facility] Start: 10-24-1988 Varicella vaccine (1 of 2 - 2-dose childhood series) Varicella vaccine (1 of 2 - 2-dose childhood series) [place], [place] Start: 1987 Tobacco Counseling Tobacco Counseling [facility] End: 05-18-2024 Calprotectin stool Calprotectin stool Lab Routine Change in bowel movement 1 Occurrences starting 05/18/2023 until 05/18/2024 [facility] Comment on above: 1 Occurrences starting 05/18/2023 until 05/18/2024 End: 07-24-2019 Chlamydia/GC DNA, Urine Chlamydia/GC DNA, Urine Microbiology Routine Std Exposure 1 Occurrences starting 07/24/2019 until 07/24/2019 [place] Comment on above: 1 Occurrences starting 07/24/2019 until 07/24/2019 Chlamydia/GC DNA, Urine Chlamydi a/GC DNA, Urine Microbiology Routine STD exposure 07/24/2019 4:46 PM EDT [place], [place] End: 05-17-2024 Colonoscopy Colonoscopy GI Routine Lawrence e in bowel movement 1 Occurrences starting 05/18/2023 until 05/17/2024 [facility] Comment on above: 1 Occurrences starting 05/18/2023 until 05/17/2024 End: 05-17-2024 Esophagogastroduodenoscopy EGD GI Routine Change in bowel movement 1 Occurrences starting 05/18/2023 until 05/17/2024 [facility] Comment on above: 1 Occurrences starting 05/18/2023 until 05/17/2024 End: 05-17-2024 Fibroscan Fibroscan GI Routine Elevate d ALT measurement 1 Occurrences starting 05/18/2023 until 05/17/2024 [facility] Comment on above: 1 Occurrences starting 05/18/2023 until 05/17/2024 End: 05-17-2024 Hemochroma HFE gene Hemochroma HFE gene Lab Routine Elevated ALT measurement 1 Occurrences starting 05/18/2023 until 05/17/2024 [facility] on above: 1 Occurrences starting 05/18/2023 until 05/17/2024 HFE gene mutations f ound [Identifier] in Blood or Tissue by Molecular genetics method Nominal Hemochroma HFE gene Lab Routine Elevated ALT measurement 05/18/2023 1:46 PM EST [facility] Mitochondria M2 Ab [Units/volume] in Serum by Immunoassay Mitochondrial AB (M2) Lab Routine Elevated ALT measurement 05/18/2023 1:46 PM EST [facility] End: 05-18-2024 Mitochondrial AB (M2) Mitochondrial AB (M2) Lab Routine Elevated ALT measurement 1 Occurrences starting 05/18/2023 until 05/18/2024 [employer] [employer]: Comment on above: 1 Occurrences starting 05/18/2023 until 05/18/2024 End: 05-18-2024 Smooth Muscle AB Smooth Muscle AB Lab Routine Elevated ALT measurement 1 Occurrences starting 05/18/2023 until 05/18/2024 [facility] Comment on above: 1 Occurrences starting 05/18/2023 until 05/18/2024 Smooth muscle Ab [Pr esence] in Serum by Immunofluorescence Smooth Muscle AB Lab Routine Elevated ALT measurement 05/18/2023 1:46 PM EST [facility] Payers Date Payer Category Payer Self-pay 2016 Unknown BCBS [place] - [place] P PO xxxxxxxxxxxx 2016-Present [address] [place] [address] xxxxxxxxxxxx [id number] 2016 Unknown [id number] 2016 Unknown [id number] 2016 Unknown ANTHEM BLUE ACCE SS (PPO) [id number] 2016-Present [phone] [address] [place] [address] [id number] 1987 Unknown [id number] 2.16.840.1.353064.3.579.2.176 1987 Unknown [id number] 2.16.840.1.603649.3.579.2.175 1987 Unknown [id number] 2.16.840.1.380212.3.579.2.128 1987 Unknown [id number] 2.16.840.1.235886.3.579.2.128 1987 Unknown [id number] 2.16.840.1.020239.3.579.2.128 1987 Unknown [id number] 2.16.840.1.260170.3.579.2.128 1987 Unknown [id number] 2.16.840.1.619532.3.579.2.128 1987 Unknown [id number] 2.16.840.1.723663.3.579.2.128 1987 Unknown [id number] 2.16.840.1.201634.3.579.2.128 1987 Unknown [id number] 2.16.840.1.174156.3.579.2.128 1987 Unknown [id number] 2.16.840.1.433343.3.579.2.128 1987 Unknown [id number] 2.16.840.1.066558.3.579.2.128 1987 Unknown [id number] 2.16.840.1.999584.3.579.2.128 1987 Unknown [id number] 2.16.840.1.860863.3.579.2.128 1987 Unknown [id number] 2.16.840.1.534287.3.579.2.128 1987 Unknown [id number] 2.16.840.1.687706.3.579.2.128 1987 Unknown [id number] 2.16.840.1.318658.3.579.2.128 6 1987 Unknown [id number] 2.16.840.1.221375.3.579.2.128 6 1987 Unknown [id number] 2.16.840.1.221159.3.579.2.128 6 1987 Unknown [id number] 2.16.840.1.214123.3.579.2.128 6 1987 Unknown [id number] 2.16.840.1.690186.3.579.2.128 6 1987 Unknown [id number] 2.16.840.1.707005.3.579.2.128 6 1987 Unknown [id number] 2.16.840.1.266649.3.579.2.125 9 Unknown Silvia MANUEL/NIKKO [id number] 2.16.840.1.516565.3.579.2.531 Social History Date Type Detail Facility Start: 07-21-2019 End: 05-18-2023 Tobacco smoking status AKIS Former smoker [facility] End: 03-29-2017 History of tobacco use Current smoker [place] End: 03-29-2017 History of tobacco use Cigarette Smoker [place] Start: 07-21-2019 End: 05-08-2020 Cigarettes smoked current (pack per day) - Reported [place] Start: 07-21-2019 End: 05-23-2023 Alcohol intake Current drinker of alcohol (finding) [place] Start: 11-02-2017 Tobacco Comment occassional - every other day [place] Start: 11-02-2017 Alcohol Comment occasional [place], [place] Start: 1987 Sex Assigned At Not on file [place], [place] Start: 1987 Sex Assigned At Male [facility] Start: 09-01-2018 End: 05-18-2023 Tobacco use and exposure User of smokeless tobacco [facility] History of tobacco use Chews Tobacco [facility] Start: 05-08-2020 End: 04-28-2023 Tobacco use panel [facility] PHQ-2 Score 0 [facility] Start: 09-01-2018 Alcohol Comment socially [facility] Start: 05-18-2023 Alcohol Comment rare [facility] Clinical Notes 11-27-2022 to 06-07-2023 Telephone Encounter - Maico Joshua MD - 06/07/2023 11:56 PM EDTTelephone Encounter - Maico Joshua MD - 06/07/2023 11:56 PM HARJEET Hilliard - 05/28/2023 10:00 AM EST Note Date & Type Note Facility 06-07-2023 Miscellaneous Notes Please let the patient know the following: Biopsies from the duodenum showed normal lining. Biopsies from the stomach showed mild inflammation. Continue the stomach medication protonix for 2 months. There was some nonspecific inflammation noted on the colon biopsies without definite diagnosis. This could be irritation from the bowel prep, medication side effect, or it could be an early chronic process that has not fully characterized yet. I would recommend you avoid taking NSAID medications including but not limited to ibuprofen, motrin, advil, meloxicam(mobic), diclofenac and aleve as these medications can trigger inflammation in the GI tract. If you need something for pain or headache, the safest medication to use would be over the counter tylenol as needed for pain or headache. If you use tylenol, you can take 1000mg up to four times a day(up to total of 4000mg throughout the day). We should consider repeat colonoscopy in 6-8 months to see if the inflammation would regress or progress. We will discuss further at the next office visit. Please add a recall for repeat colonoscopy in 6-8 months(around Nov 2023). Will need MAC anesthesia. Cas Crook cc'ed you FYI. 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 There is some basal plasmacytosis but no significant crypt architectural changes Part 4: Left colon: Rare crypt abscess and focal collection of histiocytes, suggestive of crypt granuloma. These findings are nonspecific. There are many scattered lymphoid aggregates makes the evaluation difficult. Differential diagnosis of focal active colitis includes bowel preparation artifact, NSAID injury including ischemia, self-limited colitis/resolving infection and an early inflammatory bowel disease. You may repeat biopsies after 6 months. In case of a self-limited colitis, repeat biopsies may show a complete resolution. In case of IBD, it may show more features of chronicity. documented in this encounter [facility] 06-07-2023 Telephone encounter Note Please let the patient know the following: Biopsies from the duodenum showed normal lining. Biopsies from the stomach showed mild inflammation. Continue the stomach medication protonix for 2 months. There was some nonspecific inflammation noted on the colon biopsies without definite diagnosis. This could be irritation from the bowel prep, medication side effect, or it could be an early chronic process that has not fully characterized yet. I would recommend you avoid taking NSAID medications including but not limited to ibuprofen, motrin, advil, meloxicam(mobic), diclofenac and aleve as these medications can trigger inflammation in the GI tract. If you need something for pain or headache, the safest medication to use would be over the counter tylenol as needed for pain or headache. If you use tylenol, you can take 1000mg up to four times a day(up to total of 4000mg throughout the day). We should consider repeat colonoscopy in 6-8 months to see if the inflammation would regress or progress. We will discuss further at the next office visit. Please add a recall for repeat colonoscopy in 6-8 months(around Nov 2023). Will need MAC anesthesia. Cas Crook cc'ed you FYI. 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 There is some basal plasmacytosis but no significant crypt architectural changes Part 4: Left colon: Rare crypt abscess and focal collection of histiocytes, suggestive of crypt granuloma. These findings are nonspecific. There are many scattered lymphoid aggregates makes the evaluation difficult. Differential diagnosis of focal active colitis includes bowel preparation artifact, NSAID injury including ischemia, self-limited colitis/resolving infection and an early inflammatory bowel disease. You may repeat biopsies after 6 months. In case of a self-limited colitis, repeat biopsies may show a complete resolution. In case of IBD, it may show more features of chronicity. [facility] 05-28-2023 History of Present illness Narrative Images from the original note were not included. [address] [address] Date of Service: 04/27/2023 Video Visit via Real-time Synchronous Audiovisual Provider Location: [facility] [address] [place] [id number] Patient Location: Patient's home Video Visit Consent Statement: I discussed risks, benefits, and alternatives of a real-time synchronous audiovisual consultation with the patient (and any accompanying persons) including the risks that the patient's personal health details and medical records will be discussed over real-time, synchronous, interactive video/audio/telecommunication technology, the visit will not be recorded without the express consent of both the provider and the patient, and that there are some limitations compared to [id number] evaluations. The patient consented to the presence of additional virtual and/or in-person participants. We elected to proceed. Thank you for the referral to evaluate De Garcia Jr. for chronic fatigue. This is a new patient and is seen at the request of MARINA Garzon. Chief Complaint: Chronic fatigue SUBJECTIVE: De Garcia Jr. is a 37 y.o. male presented today for a follow up visit on chronic fatigue syndrome His rash has improved significantly. He has seen the hood maker who gave him ketoconazole cream His fatigue is persistent at this time He has had endoscopy and colonoscopy on 05/21/2023 Patient's lab tests showed low titer LOUIS positivity at 1:160 and very mild elevation in CRP Visit history from 04/27/2023 De Garcia Jr. is a 37 y.o. male with no significant past medical history came accompanied by his . Today he presents today for evaluation of chronic fatigue. His symptoms started 8 months ago with a rash on his face. Six mths ago started feeling tired, feels very weak in arms and legs , more in arms. There is nothing that makes his symptoms worse or better. One other major concern he has at this time is that his speech is sounding slurred(noticing discrepancy in what he is thinking and saying) feels like the mouth does not move the way it should , no swelling in joints , brain fog. He does admit to history of psoriasis as a child, denies any recent or current flares. He denies significant joint pains. Current Outpatient Medications Medication Sig Dispense Refill albuterol (PROVENTIL HFA;VENTOLIN HFA) 90 mcg/actuation inhaler Inhale 2 puffs every 4 (four) hours as needed for wheezing or shortness of breath. (Patient not taking: Reported on 04/27/2023) 1 Inhaler 0 dicyclomine (BENTYL) 20 mg tablet Take 1 tablet (20 mg total) by mouth 2 (two) times a day as needed (abdominal cramping). 20 tablet 0 doxycycline (VIBRA-TABS) 100 mg tablet Take 1 tablet (100 mg total) by mouth 2 (two) times a day. (Patient not taking: Reported on 10/12/2018) 20 tablet 0 ergocalciferol (VITAMIN D2) 1,250 mcg (50,000 unit) capsule Capsule weekly for 8 weeks then once monthly 12 capsule 0 fexofenadine (SEFERINO) 180 mg tablet 1 tablet Swallow whole with water; do not take with fruit juices. Orally Once a day for 90 days (Patient not taking: Reported on 05/18/2023) hydrocortisone (ANUSOL-HC) 2.5 % rectal cream Insert 1 Application into the rectum in the morning and 1 Application before bedtime. Use twice daily for hemorrhoids for 2 weeks then as needed. 30 g 1 ketoconazole (NIZORAL) 2 % cream Apply 1 Application topically in the morning. ketoconazole (NIZORAL) 2 % shampoo Apply 1 Application topically 2 (two) times a week. Apply to damp skin, lather, leave on 5 minutes, and rinse (Patient not taking: Reported on 05/18/2023) 120 mL 1 meloxicam (MOBIC) 15 mg tablet Take one tablet by mouth in the morning with food 30 tablet 2 mupirocin (BACTROBAN) 2 % ointment Apply 1 application topically 2 (two) times a day. (Patient not taking: Reported on 10/12/2018) 22 g 0 ondansetron ODT (ZOFRAN ODT) 4 mg disintegrating tablet Dissolve 1 tablet (4 mg total) on tongue every 8 (eight) hours as needed for nausea for up to 10 doses. 10 tablet 0 pantoprazole (PROTONIX) 40 mg EC tablet Take 1 tablet (40 mg total) by mouth every morning before breakfast for 60 days. Take 20-30 minutes before breakfast 60 tablet 0 tiZANidine (ZANAFLEX) 2 mg tablet One tab at 8:00 p.m.each night 30 tablet 2 No current facility-administered medications for this visit. reviewed. There is no problem list on file for this patient. reviewed. Past Surgical History: Procedure Laterality Date COLONOSCOPY BIOPSY N/A 05/21/2023 Performed by Maioc Joshua MD at [facility] ENDOSCOPY ESOPHAGOGASTRODUODENOSCOPY BIOPSY N/A 05/21/2023 Performed by Maico Joshua MD at [facility] ENDOSCOPY KNEE SURGERY pt was 14 reviewed. Social History Tobacco Use Smoking status: Former Smokeless tobacco: Current Types: Chew Vaping Use Vaping Use: Every day Substances: Nicotine, Flavoring Devices: Refillable tank Substance Use Topics Alcohol use: Yes Comment: rare Drug use: Yes Frequency: 7.0 times per week Types: Marijuana Comment: daily reviewed. No past medical history on file. reviewed. Social History Social History Narrative Not on file reviewed Family History Problem Relation Age of Onset Crohn's disease Father Colon cancer Neg Hx reviewed. No Known Allergies reviewed. The following portions of the patient's history were reviewed and updated as appropriate: allergies, current medications, past family history, past medical history, past social history, past surgical history and problem list. REVIEW OF SYSTEMS: CONSTITUTIONAL: Admits: [] Weight Loss [] Fever [x] Frequent Night Sweats [x]Fatigue: 2 months OPHTHALMOLOGIC: Admits: [] Glaucoma [] History or Current Inflammatory Eye Disease [] Cataracts [x]Vision: it feels very blurry at times, started noticing in last 2-3 months ENT: Admits: [] Oral/Nasal Ulcers [] epistaxis [] Recurrent Sinusitis [] Dry Eyes [] Dry mouth CARDIOVASCULAR: Admits: [] Chest pain [] Pericarditis/Pleuritis [] Palpitations [] Edema RESPIRATORY: Admits: [] hemoptysis [] Dyspnea on Exertion [] Cough [] Wheezing vapes+ GASTROINTESTINAL: Admits: [] Bloody Stool [x] Diarrhea [] Vomiting[]Constipation GENITOURINARY: Admits: [] Blood in urine [] Genital Ulcers [] Burning/pain with urination[x]Increased frequency MUSCULOSKELETAL: Admits: [x] Muscle Pain [x] Joint Pain INTEGUMENTARY: Admits: [x] Skin changes: rash on face , at times on scalp, lara area [] Sclerodactyly [] Raynauds [] Photosensitivity [] Alopecia NEUROLOGIC: Admits: [x] Recurrent Headaches [x] Limb Weakness [x] Numbness/Tingling: left hand ring finger and little finger PSYCHIATRIC: Admits: [] Insomnia [] Depression [] Anxiety ENDOCRINE: Admits: [] Thyroid abnormalities HEMATOLOGY/LYMPH: Admits: [] Notable Swollen Lymph Nodes [] History of Cytopenias [] Bruising tendency [] History of DVT/PE All non checked boxes, patient denies. All other 10 point ROS reviewed and negative. PHYSICAL EXAMINATION: Constitutional: There were no vitals taken for this visit.: reviewed Comfortable, pleasant, no acute distress Eyes: Conjunctiva clear and moist, eyelids without lesions. Extraocular movements fully intact. Ears/Nose/Mouth/Throat: External inspection of ears/nose is normal - no scars, lesions, masses No oral ulcers or lesions on mucosa of inner mouth, tongue. Neck: Symmetrical, tongue midline, no masses, no lymphadenopathy, no thyromegaly Respiratory: Inspiratory and expiratory effort normal. Clear to auscultation bilaterally. No crackles or wheezes. Cardiovascular: Palpation of heart reveals normal PMI. Auscultation: regular rate rhythm, no murmurs/rubs/gallops. Carotid arteries symmetric and 2+. No edema of extremities Gastrointestinal: Soft, nontender, bowel sounds in all quadrants. No hepatosplenomegaly on palpation. Lymphatic: No lymphadenopathy in neck Neurologic: Facial muscles symmetric and of normal strength. Tongue is midline. Dermatologic: Inspection and palpation of skin and subcutaneous tissue of all four extremities without rashes Nailfold capillary exam normal. Dry erythematous flaky skin in lara area, malar region shows some erythematous papules that are dry. Scalp has some dry erythematous macules Psychiatric: Normal affect. Judgement/insight intact. Musculoskeletal: Neck: Full ROM. no swelling, No tenderness, Shoulder: Bilateral full active ROM. no swelling, No tenderness, Elbows: Full ROM. no swelling, No tenderness, Wrists: Full ROM. no swelling, No tenderness, Hands: Full ROM. no swelling, No tenderness, Hips: Normal ROM. No swelling, No tenderness, Knees: Normal ROM, no swelling, No tenderness, Feet: Full ROM. no swelling, No tenderness, Ankles: Normal ROM,no swelling, No tenderness, Spine: no tenderness throughout spine, no sacroiliac joint tenderness Physical Exam Labs & Imaging: Labs and Imaging reviewed and discussed with the patient during the visit. No results found for: RF , C3 , C4 Lab Results Component Value Date WBC 15.5 (H) 05/23/2023 HGB 16.6 05/23/2023 HCT 47.1 05/23/2023 MCV 87 05/23/2023 PLT 358 05/23/2023 Lab Results Component Value Date CREATININE 0.99 05/23/2023 BUN 11 05/23/2023 K 5.0 05/23/2023 CL 101 05/23/2023 CO2 25 05/23/2023 Lab Results Component Value Date ALT 55 (H) 05/23/2023 AST 39 05/23/2023 ALKPHOS 100 05/23/2023 Lab Results Component Value Date SEDRATE 29 (H) 05/18/2023 Lab Results Component Value Date CRP 1.2 (H) 05/18/2023 No results found. ASSESSMENT/PLAN: De Garcia Jr. is a 37 y.o. male patient no significant past medical history presents for evaluation of chronic fatigue. Patient established care with me on 04/27/2023 No diagnosis found. No orders of the defined types were placed in this encounter. Overall impression Rash: Based on his clinical history ros and clinical exam my impression of rash is that it is due to seborrheic dermatitis. Patient saw hood maker who is treating it for seborrhoic dermatitis Chronic fatigue: He describes chronic fatigue of recent onset as well as weakness in his muscles. Explained to patient that I do not see any evidence of synovial thickening/synovitis during today's exam. Based on his history, ros and clinical exam I could not find a specific cause for his fatigue at this time to consider at this time are chronic fatigue syndrome Vitamin-D was low on 05/03/2023 at 18, started on Vit D 50,000 Units. Explained to him that some of the fatigue could be due to Vitamin D deficiency, iron was normal, ferritin was increased over 600, consider hematology referral His LOUIS was low positive on 05/18/2023. I explained to him that it can be positive in normal population in low titer Plan Rash: Try Nizoral shampoo : worked Chronic fatigue in speech disturbance: Patient is very anxious about LOUIS positivity, I reassured hi that it is not unusual to see that test come back positive, but he reports persistent fatigue, will get additional lab testing: Ds DNA by crithidia, C3, C4, Antiphospholipid antibody panel, LORE panel and urinalysis Further plan based on alb results Treatment Chronic fatigue and muscle pain: Tizanidine 2 mg at bedtime, Mobic 15 mg every morning with food as needed for pain Referral Dermatology referral: resolved for seborrheic dermatitis and past history of psoriasis Speech disturbance-neurology referral Follow up based on lab results Total time spent with the patient face to face was 15 minutes which included obtaining and reviewing history, performing an exam, educating and counseling the patient, communicating test results to the patient. Preparing to see the patient (reviewing all results, history, medications, my office notes, other physician notes), ordering tests/medications/referrals, documenting in the patient's health record time spent was 15 minutes This note was created with the assistance of a speech recognition program. While intending to generate a timely document that accurately reflects the content of the visit, no guarantee can be provided that every grammatical or spelling mistake has been or will be identified or corrected. Thank you for your understanding. [facility] Rona Lamb PA-C [address] [place] [address] Office [phone] HARJEET Batista 04/28/23 7724 HARJEET Batista 05/28/23 1043 documented in this encounter [facility] 05-18-2023 History of Present illness Narrative [facility] New Patient Visit - History & Physical CHIEF COMPLAINT: Chief Complaint Patient presents with GI Problem Pt states he has had some abnormal labs and change in bowel habits. Pt states he goes back and forth with constipation and diarrhea. Pt states he has some abdominal pain and bloating. HISTORY OF PRESENT ILLNESS: De Garcia Jr. is a 37 y.o. male who has a past medical history of psoriasis and vitamin D deficiency who presents today for evaluation of altered bowel habits. He has had altered bowel habits for 10+ years however has worsened over the past 6-8 months. He has no known triggering factors. He is moving his bowels daily however has been having days of 6-7 loose, urgent stools. At times he is straining to move his bowels. He will take Metamucil prn. He has no nocturnal stools. No blood in the stool however he has had a small amount of BRB on the toilet tissue. He has occasional black stools. He denies Pepto or iron use. No nausea or vomiting. He has intermittent LLQ abdominal discomfort that is not related to moving his bowels. He also notes some rectal discomfort that appears to improve during bowel movements. He rarely has heartburn, only with consuming spicy foods. He has no dysphagia or odynophagia. Appetite has decreased. No weight loss. He also notes recent fatigue/weakness, race on face, and lower back pain. He has been seen by rheumatology. Labs revealed normal hemoglobin. Vitamin D was 18. He is on weekly vitamin D supplement. Liver enzymes showed ALT 52. Ferritin was 684, iron 128, and iron saturation 45%. He reports a family history of Crohn's disease in his father. He has never had an EGD or colonoscopy. He does vape. He drinks alcohol socially. He smokes marijuana. History reviewed. No pertinent past medical history. PREVIOUS ENDOSCOPY OR X-RAY PROCEDURES: As noted in the HPI Past Surgical History: Past Surgical History: Procedure Laterality Date KNEE SURGERY pt was 14 Current Medications: Current Outpatient Medications: ergocalciferol (VITAMIN D2) 1,250 mcg (50,000 unit) capsule, Capsule weekly for 8 weeks then once monthly, Disp: 12 capsule, Rfl: 0 ketoconazole (NIZORAL) 2 % cream, Apply 1 Application topically in the morning., Disp: , Rfl: meloxicam (MOBIC) 15 mg tablet, Take one tablet by mouth in the morning with food, Disp: 30 tablet, Rfl: 2 tiZANidine (ZANAFLEX) 2 mg tablet, One tab at 8:00 p.m.each night, Disp: 30 tablet, Rfl: 2 albuterol (PROVENTIL HFA;VENTOLIN HFA) 90 mcg/actuation inhaler, Inhale 2 puffs every 4 (four) hours as needed for wheezing or shortness of breath. (Patient not taking: Reported on 04/27/2023), Disp: 1 Inhaler, Rfl: 0 doxycycline (VIBRA-TABS) 100 mg tablet, Take 1 tablet (100 mg total) by mouth 2 (two) times a day. (Patient not taking: Reported on 10/12/2018), Disp: 20 tablet, Rfl: 0 fexofenadine (SEFERINO) 180 mg tablet, 1 tablet Swallow whole with water; do not take with fruit juices. Orally Once a day for 90 days (Patient not taking: Reported on 05/18/2023), Disp: , Rfl: ketoconazole (NIZORAL) 2 % shampoo, Apply 1 Application topically 2 (two) times a week. Apply to damp skin, lather, leave on 5 minutes, and rinse (Patient not taking: Reported on 05/18/2023), Disp: 120 mL, Rfl: 1 mupirocin (BACTROBAN) 2 % ointment, Apply 1 application topically 2 (two) times a day. (Patient not taking: Reported on 10/12/2018), Disp: 22 g, Rfl: 0 I reviewed and reconciled this patient's medication list today. The list included in this note is the most up to date list that I can attest to at this time based on the information that the patient has provided me and the electronic medical record. ALLERGIES: Patient has no known allergies. SOCIAL HISTORY: Social History Tobacco Use Smoking status: Former Smokeless tobacco: Current Types: Chew Vaping Use Vaping Use: Every day Substances: Nicotine Devices: Eterno[employer] Substance Use Topics Alcohol use: Yes Comment: rare Drug use: Yes Types: Marijuana FAMILY HISTORY: Family History Problem Relation Age of Onset Crohn's disease Father ASSESSMENTS: REVIEW OF SYSTEMS: See HPI, otherwise ROS as below CONSTITUTIONAL: Weight gain and fatigue; No fever, or chills HEENT: No eye pain, difficulty swallowing, or painful swallowing RESPIRATORY: No coughing, shortness of breath, or wheezing CARDIOVASCULAR: No chest pain, palpitations, dyspnea on exertion, or edema GASTROINTESTINAL: Abdominal pain and altered bowel habits; No nausea/vomiting GENITOURINARY: No dysuria or hematuria INTEGUMENT/BREAST: No skin rashes or skin lesions HEMATOLOGIC/LYMPHATIC: No anemia or easy bruising ALLERGIC/IMMUNOLOGIC: No seasonal allergies, itching, or hay fever ENDOCRINE: No heat/cold intolerance, no diabetes MUSCULOSKELETAL: No joint/muscle pain or arthritis NEUROLOGICAL: No headache or seizures BEHAVIOR/PSYCH: No anxiety or depression PHYSICAL EXAM: Vitals: 05/18/23 1220 BP: 122/82 Pulse: 92 Weight: 117.5 kg (259 lb) Height: 177.8 cm (5' 10 ) Body mass index is 37.16 kg/m . CONSTITUTIONAL: Alert, well developed and well-nourished. No apparent distress. HEAD: Normocephalic, atraumatic EYES: Pupils equal, round and reactive to light; conjunctiva pink; no scleral icterus. ENT: Oral pharynx with moist mucus membranes. LUNGS: No increased work of breathing, good air exchange CARDIOVASCULAR: no edema ABDOMEN: Soft, non-distended and non-tender. SKIN: Warm and dry. No bruising or bleeding, no rashes and no jaundice. MS: Normal range of motion, moves all 4 extremities spontaneously, and ambulates without difficulty. NEURO: Oriented to person, place, and time. No focal deficits. PSYCH: Normal mood and affect. Behavior is normal. Depression Screening DATA: CBC: Lab Results Component Value Date WBC 10.5 05/14/2023 HGB 16.1 05/14/2023 HCT 46.3 05/14/2023 MCV 87 05/14/2023 RDW 13.4 05/14/2023 PLT 291 05/14/2023 CMP: Lab Results Component Value Date K 4.2 05/14/2023 CL 100 05/14/2023 CO2 27 05/14/2023 BUN 15 05/14/2023 GLU 100 (H) 05/14/2023 IMAGING: No new imaging. ASSESSMENT AND PLAN: De Garcia Jr. is a 37 y.o. male with a past medical history of psoriasis and vitamin D deficiency who presents today for evaluation of altered bowel habits. He has had altered bowel habits for 10+ years however has worsened over the past 6-8 months. He is having 1-7 stools daily, occasionally loose, urgent stools. At times there is a small amount of BRB on the toilet tissue. He reportedly has occasional black stools, no Pepto or iron use. He has intermittent LLQ abdominal pain not related to moving his bowels. He also has rectal discomfort that seems to improve during bowel movements. Recent labs recently revealed normal hemoglobin. Vitamin D was 18. He is on weekly vitamin D supplement. Liver enzymes showed ALT 52. Ferritin was 684, iron 128, and iron saturation 45%. I will check fecal calprotectin. Will also check KUB to assess stool burden. I have discussed proceeding with EGD and colonoscopy with biopsies for gastritis, peptic ulcer disease, H. Pylori, and IBD. I have discussed the risks and benefits of endoscopy including bleeding, infection, perforation/tear as well as anesthesia risks. Patient verbalized understanding and is agreeable to proceed. In regards to elevated ALT, likely due to fatty liver. Will check remaining autoimmune markers and viral hepatitis as well as Fibroscan. Diagnoses and all orders for this visit: Change in bowel movement - X-ray abdomen ap 1 view; Future - Calprotectin stool; Future - EGD; Future with Dr. Joshua with [facility]- ASA 2 - Colonoscopy; Future with Dr. Joshua with [facility]- ASA 2 Elevated ALT measurement - Hepatitis panel, acute; Future - Mitochondrial AB (M2); Future - Smooth Muscle AB; Future - Ceruloplasmin; Future - Hemochroma HFE gene; Future - Fibroscan; Future Black stools - EGD; Future with Dr. Joshua with [facility]- ASA 2 Follow up after endoscopy or sooner if needed, ok for video visit. Ambreen Avelar APRN-[facility] [place] [id number], [address] [place] [address] PH: [phone] /KHALIF Total time spent: 45 minutes Preparing to see the patient (e.g., review of tests) Obtaining and/or reviewing separately obtained history Performing a medically appropriate examination and/or evaluation Counseling and educating the patient/family/caregiver Ordering medications, tests, or procedures MARINA August 05/18/23 1318 documented in this encounter [facility] 05-14-2023 Miscellaneous Notes Tried to call patient to see if he wanted to cancel his appointment for today because he respond with wants to cancel to the automated message. Patient did not answer and his mailbox was full. I am unable to cancel appointment until he calls back to confirm this. documented in this encounter [facility] 05-14-2023 Telephone encounter Note Tried to call patient to see if he wanted to cancel his appointment for today because he respond with wants to cancel to the automated message. Patient did not answer and his mailbox was full. I am unable to cancel appointment until he calls back to confirm this. [facility] 05-07-2023 Miscellaneous Notes [facility] New patient referral received. Dx: Speech disturbance, unspecified type [R47.9] Brain fog [R41.89] Referred by: HARJEET Batista Referred to: Providers patient can see in clinic: Dr. Ravin Monge location Please contact patient to schedule from referral, Thanks! PLEASE REVIEW PLAN OVER THE PHONE AND ADVISE PATIENT TO BRING UPDATED INSURANCE INFORMATION TO THEIR NEW PATIENT APPOINTMENT Patient is scheduled for the following appointment: With Neurology (PAWEL PAGE MD) 05/14/2023 at 10:00 AM New patient Speech disturbance, unspecified type [R47.9] Brain fog [R41.89] Referring provider: HARJEET Batista Requesting to schedule first available location *Insurance verified: E-ANTHEM/BLUE ACCESS (PPO)* Unable to mail new patient paperwork - patient's appointment is scheduled for next day, patient advised to come in 15 minutes early [facility]-07-2023 Telephone encounter Note [facility] New patient referral received. Dx: Speech disturbance, unspecified type [R47.9] Brain fog [R41.89] Referred by: HARJEET Batista Referred to: Providers patient can see in clinic: Dr. Ravin Monge location Please contact patient to schedule from referral, Thanks! PLEASE REVIEW PLAN OVER THE PHONE AND ADVISE PATIENT TO BRING UPDATED INSURANCE INFORMATION TO THEIR NEW PATIENT APPOINTMENT [facility] 05-07-2023 Telephone encounter Note Patient is scheduled for the following appointment: With Neurology (PAWEL PAGE MD) 05/14/2023 at 10:00 AM New patient Speech disturbance, unspecified type [R47.9] Brain fog [R41.89] Referring provider: HARJEET Batista Requesting to schedule first available location *Insurance verified: E-ANTHEM/BLUE ACCESS (PPO)* Unable to mail new patient paperwork - patient's appointment is scheduled for next day, patient advised to come [facility] History of Present illness Narrative Images from the original note were not included. [id number] [id number] Date of Service: 04/27/2023 Thank you for the referral to evaluate De Garcia Jr. for chronic fatigue. This is a new patient and is seen at the request of MARINA OVALLE. Chief Complaint: Chronic fatigue SUBJECTIVE: De Garcia Jr. is a 37 y.o. male with no significant past medical history came accompanied by his . Today he presents today for evaluation of chronic fatigue. His symptoms started 8 months ago with a rash on his face. Six mths ago started feeling tired, feels very weak in arms and legs , more in arms. There is nothing that makes his symptoms worse or better. One other major concern he has at this time is that his speech is sounding slurred(noticing discrepancy in what he is thinking and saying) feels like the mouth does not move the way it should , no swelling in joints , brain fog. He does admit to history of psoriasis as a child, denies any recent or current flares. He denies significant joint pains. Current Outpatient Medications Medication Sig Dispense Refill albuterol (PROVENTIL HFA;VENTOLIN HFA) 90 mcg/actuation inhaler Inhale 2 puffs every 4 (four) hours as needed for wheezing or shortness of breath. (Patient not taking: Reported on 04/27/2023) 1 Inhaler 0 doxycycline (VIBRA-TABS) 100 mg tablet Take 1 tablet (100 mg total) by mouth 2 (two) times a day. (Patient not taking: Reported on 10/12/2018) 20 tablet 0 [START ON 04/29/2023] ketoconazole (NIZORAL) 2 % shampoo Apply 1 Application topically 2 (two) times a week. Apply to damp skin, lather, leave on 5 minutes, and rinse 120 mL 1 meloxicam (MOBIC) 15 mg tablet Take one tablet by mouth in the morning with food 30 tablet 2 mupirocin (BACTROBAN) 2 % ointment Apply 1 application topically 2 (two) times a day. (Patient not taking: Reported on 10/12/2018) 22 g 0 tiZANidine (ZANAFLEX) 2 mg tablet One tab at 8:00 p.m.each night 30 tablet 2 No current facility-administered medications for this visit. reviewed. There is no problem list on file for this patient. reviewed. No past surgical history on file. reviewed. Social History Tobacco Use Smoking status: Former Smokeless tobacco: Current Types: Chew Substance Use Topics Alcohol use: Yes Comment: socially Drug use: Never reviewed. No past medical history on file. reviewed. Social History Social History Narrative Not on file reviewed No family history on file. reviewed. No Known Allergies reviewed. The following portions of the patient's history were reviewed and updated as appropriate: allergies, current medications, past family history, past medical history, past social history, past surgical history and problem list. REVIEW OF SYSTEMS: CONSTITUTIONAL: Admits: [] Weight Loss [] Fever [x] Frequent Night Sweats [x]Fatigue: 2 months OPHTHALMOLOGIC: Admits: [] Glaucoma [] History or Current Inflammatory Eye Disease [] Cataracts [x]Vision: it feels very blurry at times, started noticing in last 2-3 months ENT: Admits: [] Oral/Nasal Ulcers [] epistaxis [] Recurrent Sinusitis [] Dry Eyes [] Dry mouth CARDIOVASCULAR: Admits: [] Chest pain [] Pericarditis/Pleuritis [] Palpitations [] Edema RESPIRATORY: Admits: [] hemoptysis [] Dyspnea on Exertion [] Cough [] Wheezing vapes+ GASTROINTESTINAL: Admits: [] Bloody Stool [x] Diarrhea [] Vomiting[]Constipation GENITOURINARY: Admits: [] Blood in urine [] Genital Ulcers [] Burning/pain with urination[x]Increased frequency MUSCULOSKELETAL: Admits: [x] Muscle Pain [x] Joint Pain INTEGUMENTARY: Admits: [x] Skin changes: rash on face , at times on scalp, lara area [] Sclerodactyly [] Raynauds [] Photosensitivity [] Alopecia NEUROLOGIC: Admits: [x] Recurrent Headaches [x] Limb Weakness [x] Numbness/Tingling: left hand ring finger and little finger PSYCHIATRIC: Admits: [] Insomnia [] Depression [] Anxiety ENDOCRINE: Admits: [] Thyroid abnormalities HEMATOLOGY/LYMPH: Admits: [] Notable Swollen Lymph Nodes [] History of Cytopenias [] Bruising tendency [] History of DVT/PE All non checked boxes, patient denies. All other 10 point ROS reviewed and negative. PHYSICAL EXAMINATION: Constitutional: BP 140/84 Resp 18 Ht 177.8 cm (5' 10 ) Wt 116.8 kg (257 lb 9.6 oz) BMI 36.96 kg/m : reviewed Comfortable, pleasant, no acute distress Eyes: Conjunctiva clear and moist, eyelids without lesions. Extraocular movements fully intact. Ears/Nose/Mouth/Throat: External inspection of ears/nose is normal - no scars, lesions, masses No oral ulcers or lesions on mucosa of inner mouth, tongue. Neck: Symmetrical, tongue midline, no masses, no lymphadenopathy, no thyromegaly Respiratory: Inspiratory and expiratory effort normal. Clear to auscultation bilaterally. No crackles or wheezes. Cardiovascular: Palpation of heart reveals normal PMI. Auscultation: regular rate rhythm, no murmurs/rubs/gallops. Carotid arteries symmetric and 2+. No edema of extremities Gastrointestinal: Soft, nontender, bowel sounds in all quadrants. No hepatosplenomegaly on palpation. Lymphatic: No lymphadenopathy in neck Neurologic: Facial muscles symmetric and of normal strength. Tongue is midline. Dermatologic: Inspection and palpation of skin and subcutaneous tissue of all four extremities without rashes Nailfold capillary exam normal. Dry erythematous flaky skin in lara area, malar region shows some erythematous papules that are dry. Scalp has some dry erythematous macules Psychiatric: Normal affect. Judgement/insight intact. Musculoskeletal: Neck: Full ROM. no swelling, No tenderness, Shoulder: Bilateral full active ROM. no swelling, No tenderness, Elbows: Full ROM. no swelling, No tenderness, Wrists: Full ROM. no swelling, No tenderness, Hands: Full ROM. no swelling, No tenderness, Hips: Normal ROM. No swelling, No tenderness, Knees: Normal ROM, no swelling, No tenderness, Feet: Full ROM. no swelling, No tenderness, Ankles: Normal ROM,no swelling, No tenderness, Spine: no tenderness throughout spine, no sacroiliac joint tenderness Physical Exam Labs & Imaging: Labs and Imaging reviewed and discussed with the patient during the visit. No results found for: RF , C3 , C4 Lab Results Component Value Date WBC 5.8 04/15/2021 HGB 15.5 04/15/2021 HCT 45.2 04/15/2021 MCV 89 04/15/2021 PLT 255 04/15/2021 Lab Results Component Value Date CREATININE 0.92 04/15/2021 BUN 10 04/15/2021 K 4.1 04/15/2021 CL 101 04/15/2021 CO2 30 04/15/2021 No results found for: ALT , AST , GGT , ALKPHOS , LABBILI No results found for: SEDRATE No results found for: CRP No results found. ASSESSMENT/PLAN: De Garcia Jr. is a 37 y.o. male patient no significant past medical history presents for evaluation of chronic fatigue. Patient established care with ca on 04/27/2023 ICD-10-CM 1. Chronic fatigue syndrome G93.32 2. Speech disturbance, unspecified type R47.9 3. Seborrheic dermatitis L21.9 4. Brain fog R41.89 5. Tinea pedis of both feet B35.3 6. Chronic low back pain without sciatica, unspecified back pain laterality M54.50 G89.29 Orders Placed This Encounter Procedures X-ray spine lumbar 2 or 3 views Standing Status: Future Standing Expiration Date: 04/27/2024 Order Specific Question: Reason for Exam: Answer: low back pain Order Specific Question: Release to patient via MyChart? Answer: Immediate [1] X-ray sacroiliac joints minimum 3 views Standing Status: Future Standing Expiration Date: 04/27/2024 Order Specific Question: Reason for Exam: Answer: low back pain Order Specific Question: Release to patient via MyChart? Answer: Immediate [1] Thyroid profile includes TSH FT4 Standing Status: Future Standing Expiration Date: 04/27/2024 Order Specific Question: Release to patient via MyChart? Answer: Immediate [1] Vitamin D 25 hydroxy Standing Status: Future Standing Expiration Date: 04/27/2024 Order Specific Question: Release to patient via MyChart? Answer: Immediate [1] Thyroid antibodies includes TPO and TGAB Standing Status: Future Standing Expiration Date: 04/27/2024 Order Specific Question: Release to patient via MyChart? Answer: Immediate [1] Iron and TIBC Standing Status: Future Standing Expiration Date: 04/27/2024 Order Specific Question: Release to patient via MyChart? Answer: Immediate [1] Ferritin Standing Status: Future Standing Expiration Date: 04/27/2024 Order Specific Question: Release to patient via MyChart? Answer: Immediate [1] Hepatic function panel Standing Status: Future Standing Expiration Date: 04/27/2024 Order Specific Question: Release to patient via MyChart? Answer: Immediate [1] CK Total Standing Status: Future Standing Expiration Date: 04/27/2024 Order Specific Question: Release to patient via MyChart? Answer: Immediate [1] LDH Standing Status: Future Standing Expiration Date: 04/27/2024 Order Specific Question: Release to patient via MyChart? Answer: Immediate [1] Aldolase Standing Status: Future Standing Expiration Date: 04/27/2024 Order Specific Question: Release to patient via MyChart? Answer: Immediate [1] Erythrocyte Sedimentation Rate (ESR) Standing Status: Future Standing Expiration Date: 04/27/2024 Order Specific Question: Release to patient via MyChart? Answer: Immediate [1] C-reactive protein Standing Status: Future Standing Expiration Date: 04/27/2024 Order Specific Question: Release to patient via MyChart? Answer: Immediate [1] Antinuclear Ab, HEp-2 Substrate, S Standing Status: Future Standing Expiration Date: 04/27/2024 Order Specific Question: Release to patient via MyChart? Answer: Immediate [1] Vitamin B12 Standing Status: Future Standing Expiration Date: 04/27/2024 Order Specific Question: Release to patient via MyChart? Answer: Immediate [1] [facility] [place], [place] Standing Status: Future Standing Expiration Date: 04/27/2024 Referral Priority: Routine Referral Type: Consultation Referral Reason: Specialty Services Required Requested Specialty: Neurology Number of Visits Requested: 1 Ambulatory referral to Dermatology Standing Status: Future Standing Expiration Date: 04/27/2024 Referral Priority: Routine Referral Type: Consultation Referral Reason: Specialty Services Required Referred to Provider: Marty Vela MD Requested Specialty: Dermatology Number of Visits Requested: 1 Overall impression Rash: Based on his clinical history ros and clinical exam my impression of rash is that it is due to seborrheic dermatitis. He gives history of psoriasis as a child. He denies any psoriasis flare-up for several years. He is unsure if he received any oral medications for his psoriasis as a child. He denies any significant low back pain or stiffness, sausage like digits, any tendon pain Chronic fatigue: He describes chronic fatigue of recent onset as well as weakness in his muscles. Explained to patient that I do not see any evidence of synovial thickening/synovitis during today's exam. Based on his history, ros and clinical exam I could not find a specific cause for his fatigue at this time to consider at this time are chronic fatigue syndrome, vitamin-D deficiency, iron-deficiency, thyroid abnormality Plan Rash: Try Nizoral shampoo Chronic fatigue in speech disturbance: Labs today to to find cause of chronic fatigue and exclude systemic autoimmune disorder--thyroid profile, thyroid antibodies including TPO and antithyroglobulin antibodies. Vitamin-D, iron TIBC, ferritin, hepatic function panel, CK total, LDH, aldolase, ESR, CRP, LOUIS titer, vitamin B12 Imaging: He does have history of psoriasis as a child so I would like to get x-ray lumbar spine and x-ray SI joint to exclude any spondyloarthropathy at this time Treatment Rash: Nizoral shampoo Chronic fatigue and muscle pain: Tizanidine 2 mg at bedtime, Mobic 15 mg every morning with food as needed for pain Referral Dermatology referral for seborrheic dermatitis and past history of psoriasis Speech disturbance-neurology referral Follow up in 8-10 weeks or sooner based on lab results Total time spent with the patient face to face was 40 minutes which included obtaining and reviewing history, performing an exam, educating and counseling the patient, communicating test results to the patient. Preparing to see the patient (reviewing all results, history, medications, my office notes, other physician notes), ordering tests/medications/referrals, documenting in the patient's health record time spent was 15 minutes This note was created with the assistance of a speech recognition program. While intending to generate a timely document that accurately reflects the content of the visit, no guarantee can be provided that every grammatical or spelling mistake has been or will be identified or corrected. Thank you for your understanding. [facility] Rona Lamb PA-C [address] [place] [address] Office [phone] HARJEET Batista 04/28/23 [id number] documented in this encounter [facility] 11-27-2022 Note [facility] Sperm Rapid Progressive November 27, 2022 8:53am 48 % 11-27-2022 Note [facility] Sperm Non-Progressive November 27, 2022 8:53am 11 % Evaluation note No assessment information availa ble [facility] Work Phone: Evaluation note Diagnosis Chronic fatigue syndrome- Primary Speech disturbance, unspecified type Seborrheic dermatitis Unspecified seborrheic dermatitis Brain fog Tinea pedis of both feet Chronic low back pain without sciatica, unspecified back pain laterality [facility] Diagnosis Vitamin D deficiency- Primary [facility] Diagnosis Change in bowel movement- Primary Elevated ferritin Other abnormal blood chemistry documented in this encounter [facility]* Diagnosis Change in bowel movement- Primary Elevated ALT measurement Elevated ferritin Other abnormal blood chemistry Black stools Nonspecific abnormal finding in stool contents Change in bowel movement [facility] Diagnosis Positive LOUIS (antinuclear antibody)- Primary Other and unspecified nonspecific immunological findings documented [facility] this encounter [facility] filedocumented in this encounter [facility] filedocumented in this encounter [facility] filedocumented in this encounter [facility] filedocumented in this encounter [facility]Not on filedocumented in this encounter [facility] on filedocumented in this encounter [facility] on filedocumented in this encounter [facility] SystemReason for referral (narrative)* Consultation (Routine) - Pending Review Specialty Diagnoses / Procedures Referred By Howard bautista Referred To Contact Dermatology Diagnoses Seborrheic dermatitis Tinea pedis of both feet Rona Lamb PA [address] [place] [address] Marty Vela MD [address] [facility] [address] [place] [address] Referral ID Status Reason Start Date Expiration Date Visits Requested Visits Authorized [id number] Pending Review Specialty Services Required 04/27/2023 04/26/2024 1 1 * Consultation (Routine) - Pending Review Specialty Diagnoses / Procedures Referred By Howard bautista Referred To Contact Neurology Diagnoses Speech disturbance, unspecified type Brain fog Rona Lamb PA [address] [facility] [address] [place] [address] [facility] [address] [place] [address] [address] [facility] [place] [place] [address] Referral ID Status Reason Start Date Expiration Date Visits Requested Visits Authorized [id number] Pending Review Specialty Services Required 04/27/2023 04/26/2024 1 1 [employer] SystemReason for referral (narrative)* Consultation (Routine) - Pending Review Specialty Diagnoses / Procedures Referred By Howard t Referred To Contact Gastroenterology Diagnoses Change in bowel movement Elevated ferritin Rona Lamb PA [address] 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 Advance Directives and Living Will Power of Composing Machine Operator/Tender Advance Directive Response Recorded Date/ Time Advance Directives No November 26, 2022 1:18pm Summary Purpose Family History No Family History Records FoundNo Family History Records FoundNo Family History Records FoundNo Family History Records FoundNo Family History Records FoundNo Family History Records FoundNo Family History Records Found Chief Complaint and Reason for Visit Chief Complaint See order Reason for Referral Specialty Diagnoses / Procedures Referred By Contac t Referred To Contact Diagnoses Change in bowel movement Procedures Colonoscopy Ambreen Avelar, 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 [address] [place] [address] Referral ID Status Reason Start Date Expiration Date V isits Requested Visits Authorized [id number] Pending Review 05/18/2023 05/17/2024 1 1 Specialty Diagnoses / Procedures Referred By Contac t Referred To Contact Diagnoses Change in bowel movement Procedures EGD Ambreen Avelar 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 [address] [place] [address] Referral ID Status Reason Start Date Expiration Date V isits Requested Visits Authorized [id number] Pending Review 05/18/2023 05/17/2024 1 1 Specialty Diagnoses / Procedures Referred By Contac t Referred To Contact Diagnoses Elevated ALT measurement Procedures Fibroscan Ambreen Avelar 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 [address] [place] [address] Referral ID Status Reason Start Date Expiration Date V isits Requested Visits Authorized [id number] Pending Review 05/18/2023 05/17/2024 1 1 Additional Source Comments (unrecognized sect ion and content) No Status Records FoundNo Status Records FoundNo Status Records FoundNo Status Records FoundNo Status Records FoundNo Status Records FoundNo Status Records Found INFORMATION SOURCE (unrecogn ized section and content) DATE CREATED AUTHOR 07/25/2019 [facility] DATE CREATED AUTHOR AUTHOR'S ORGANIZ ATION 04/05/2021 [facility] DATE CREATED AUTHOR AUTHOR'S ORGANIZ ATION 12/31/2022 [facility] DATE CREATED AUTHOR AUTHOR'S ORGANIZ ATION 05/28/2023 [facility] DATE CREATED AUTHOR AUTHOR'S ORGANIZ ATION 05/30/2023 [facility] DATE CREATED AUTHOR AUTHOR'S ORGANIZ ATION [facility] DATE CREATED AUTHOR AUTHOR'S ORGANIZ ATION 07/17/2023 [facility] Care Teams (unrecognized sec tion and content) Team Status: Active Member Role Status Dates NON STAFF Primary Care Provider Active Team Status: Inactive Member Role Status Dates NON STAFF Primary Care Provider, Attending Provider Active Thread Drawer Relationship Specialty Start Date End Date Alex Pyle, 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 [address] [place] [address] PCP - General 11/03/17 Thread Drawer Relationship Specialty Start Date End Date Alex Pyle, 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 [address] [place] [address] PCP - General 11/03/17 Thread Drawer Relationship Specialty Start Date End Date Alex Pyle, 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 [address] [place] [address] PCP - General 11/03/17 Thread Drawer Relationship Specialty Start Date End Date Alex Pyle, 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 [address] [place] [address] PCP - General 11/03/17 Thread Drawer Relationship Specialty Start Date End Date Alex Pyle, 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 [address] [place] [address] PCP - General 11/03/17 Thread Drawer Relationship Specialty Start Date End Date Jorge A Freire, 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 [address] [place] [address] PCP - General Primary Care 05/14/23 Thread Drawer Relationship Specialty Start Date End Date Jorge A Freire APRN-CNP [address] [place] [address] PCP - General Primary Care 05/14/23 Thread Drawer Relationship Specialty Start Date End Date Jorge A Freire APRN-CNP [address] [place] [address] PCP - General Primary Care 05/14/23 Goals (unrecognized section and content) Goals may be documented in a n alternate sectionNot on filedocumented as of this encounterNot on filedocumented as of this encounterNot on filedocumented as of this encounterNot on filedocumented as of this encounterNot on filedocumented as of this encounterNot on filedocumented as of this encounterNot on filedocumented as of this encounterNot on filedocumented as of this encounter Reason for Visit (unrecogniz ed section and content) Reason Onset Date Comments NEW PATIENT REFERRAL 05/07/2023 Reason Comments GI Problem Pt states he has had some abnormal labs and change in bowel habits. Pt states he goes back and forth with constipation and diarrhea. Pt states he has some abdominal pain and bloating. Specialty Diagnoses / Procedures Referred By Howard bautista Referred To Contact Gastroenterology Diagnoses Change in bowel movement Elevated ferritin Rona Labm PA [address] [facility] [address] [place] [address] [facility] [address] [facility] [address] [place] [address] Referral ID Status Reason Start Date Expiration Date Visits Requested Visits Authorized [id number] Pending Review Specialty Services Required 05/12/2023 05/11/2024 1 1 FOR RECORDS PERTAINING TO PATIENTS WHO ARE OR HAVE BEEN ENROLLED IN A CHEMICAL DEPENDENCY/SUBSTANCEABUSE PROGRAM, SOME INFORMATION MAY BE OMITTED. This clinical summary was aggregated from multiple sources. Caution should be exercised in using it in the provision of clinical care. This summary normalizes information from multiple sources, and as a consequence, information in this document may materially change the coding, format and clinical context of patient data. In addition, data may be omitted in some cases. CLINICAL DECISIONS SHOULD BE BASED ON THE PRIMARY CLINICAL RECORDS. [employer] [facility]. provides no warranty or guarantee of the accuracy or completeness of information in this document.
== END 2023-12-23 18:38 | disposition home or self-care (01) ==
LOC: US 18:37
DX: R49.0 Dysphonia (principal)
CPT/HCPCS: 76536